=== PATIENT | female | born 1945 | race Caucasian/White ===

== ENCOUNTER 2016-10-04 00:48 | Inpatient (IN) | payer OTHER, MEDICARE ==
[2016-10-04] VITALS (8 sets, daily range): BP systolic 126–135; BP diastolic 57–78; PULSE 72–96; RESP 16–20; TEMP 98.3–102.4; O2SAT 95–99
[~2016-10-04 00:48] MED LIST: ALBU8I INH; BUPR150T3 PO; DOCU1CAP39 PO; FERR324T4 PO; GABA300C3 PO; GLIM2TAB PO; HYDR-2768 PO; MAGN400 PO; METO10 PO; PROT40TA PO; TAMO20TA4 PO; Z.0.WALKERFRONT; ZOCO80TA PO
[2016-10-04] MEDS ORDERED: SODIUM CHLOR 0.9% 1000 ML INJ 1,000 ML IV ONE (00:57)
[2016-10-04] MEDS ORDERED: CEFEPIME INJ 2,000 MG in SODIUM CHLORIDE 0.9% INJ 100 ML IV STA (00:57)
[2016-10-04] MEDS ORDERED: ACETAMINOPHEN 325 MG TAB PO ONE (01:00)
--- NOTE | 2016-10-04 01:23 | PD ---
HPI Chief Complaint: Fever Time Seen by Provider: 00:57 Travel History International Travel<30 days: No Contact w/Intl Traveler<30days: No Traveled to known affect area: No History of Present Illness HPI Patient is a 71-year-old female brought in by EMS due to altered mental status. Per EMS, she lives alone, but her daughter has a neighbor check on her. The daughter told the neighbor that she is concerned her mother was not acting right , and the neighbor went to check on her. She was found in her recliner, sitting in her own feces and urine. Patient says she has not been able to get up since 1 PM today. She says she is having issues with her chronic pain in her knees. She is found to be febrile. She denies any chest pain or shortness of breath. Patient was diagnosed with a UTI by her primary care doctor on Saturday, and finished a course of antibiotics today. She denies nausea or vomiting. She denies abdominal pain. PFSH Past Medical History Arthritis: Yes Asthma: Yes ("years ago") Anxiety: Yes (2004- of ) Depression: No Heart Rhythm Problems: No Cancer: Yes Cardiovascular Problems: Yes ("HEART WORKS AT 58%") High Cholesterol: Yes Chemotherapy: Yes (R/T BREAST CANCER 2007) Chest Pain: No Congestive Heart Failure: No COPD: No Cerebrovascular Accident: No Diabetes: Yes Patient Takes Glucophage: Yes Diminished Hearing: Yes Endocrine: Yes Gastrointestinal Disorders: Yes (ulcer,hiatal hernia) GERD: Yes Genitourinary: No Headaches: No Hiatal Hernia: Yes Hypertension: Yes Immune Disorder: No Implanted Vascular Access Dvce: Yes Musculoskeletal: Yes Neurologic: Yes Psychiatric: No Reproductive: No Respiratory: Yes Immunizations Current: Yes Migraines: No Seizures: No Thyroid Disease: No Ulcer: Yes Past Surgical History Abdominal Surgery: Yes (CHOLECYSTECTOMY) Body Medical Devices: LEFT SC INFUSAPORT NOT WORKING PER PATIENT Genitourinary Surgery: Yes (TUMOR REMOVE RT GROIN) Gynecologic Surgery: Yes (TUBAL LIGATION 1973) Mastectomy: Yes (right) Thoracic Surgery: Yes (RT. BREAST MASTECTOMY DUE TO CANCER) Other Surgery: Yes (MASTOID SURGERY) Social History Alcohol Use: No Tobacco Use: No Substance Use: No Allergies-Medications (Allergen,Severity, Reaction): Coded Allergies: Codeine (Verified Allergy, Severe, Swelling, 10/04/16) Penicillin (Verified Allergy, Intermediate, Rash, 10/04/16) Sulfa (Verified Allergy, Intermediate, Rash, 10/04/16) Reported Meds & Prescriptions Reported Meds & Active Scripts Active Review of Systems Except as stated in HPI: all other systems reviewed are Neg General / Constitutional: Positive: Fever HENT: No: Headaches, Lightheadedness Cardiovascular: No: Chest Pain or Discomfort Respiratory: No: Shortness of Breath Gastrointestinal: No: Nausea, Vomiting, Abdominal Pain Genitourinary: No: Decreased Urinary Output Musculoskeletal: Positive: Pain, No: Edema Skin: No Change in Pigmentation Neurologic: Positive: Weakness, Change in Mentation Physical Exam Narrative GENERAL: Slightly lethargic, but awake. She is alert and oriented. Appears in no acute distress. SKIN: Focused skin assessment warm/dry. Hot to the touch. HEAD: Atraumatic. Normocephalic. EYES: Pupils equal and round. No scleral icterus. ENT: Mucous membranes pink and moist. NECK: Trachea midline. No JVD. CARDIOVASCULAR: Regular rate and rhythm. No murmur appreciated. RESPIRATORY: No accessory muscle use. Clear to auscultation. Breath sounds equal bilaterally. GASTROINTESTINAL: Abdomen soft, non-tender, nondistended. MUSCULOSKELETAL: No obvious deformities. No clubbing. No cyanosis. No edema. Pain with movement of both knees. NEUROLOGICAL: Awake and alert. No obvious cranial nerve deficits. Motor grossly within normal limits. Normal speech. PSYCHIATRIC: Appropriate mood and affect; insight and judgment normal. Data Data Last Documented VS Vital Signs Date Time Temp Pulse Resp B/P Pulse Ox O2 Delivery O2 Flow Rate FiO2 10/04/16 02:36 99.0 80 18 135/63 97 Nasal Cannula 2 Orders Complete Blood Count With Diff (10/04/16 00:57) Comprehensive Metabolic Panel (10/04/16 00:57) Prothrombin Time / Inr (Pt) (10/04/16 00:57) Act Partial Throm Time (Ptt) (10/04/16 00:57) Lactic Acid Sepsis Protocol (10/04/16 00:57) Troponin I (10/04/16 00:57) Urinalysis - C+S If Indicated (10/04/16 00:57) Ua Includes Microscopic (10/04/16 00:57) Blood Culture (10/04/16 00:57) Chest, Single Ap (10/04/16 00:57) Blood Glucose (10/04/16 00:57) Ecg Monitoring (10/04/16 00:57) Iv Access Insert/Monitor (10/04/16 00:57) Cath For Specimen (10/04/16 00:57) Oximetry (10/04/16 00:57) Oxygen Administration (10/04/16 00:57) Acetaminophen (Tylenol) (10/04/16 01:00) Cefepime Inj (Maxipime Inj) (10/04/16 00:57) Sodium Chlor 0.9% 1000 Ml Inj (Ns 1000 M (10/04/16 00:57) Ct Brain W/O Iv Contrast(Rout) (10/04/16 ) Admit To Inpatient (10/04/16 ) Vital Signs (Adult) Q4H (10/04/16 02:53) Activity Oob With Assistance (10/04/16 02:53) Leak Detection Engineer / Telemetry .CONTINUOUS (10/04/16 02:53) Diet Heart Healthy (10/04/16 Breakfast) Admit Order (Ed Use Only) (10/04/16 ) Sodium Chloride 0.9% Flush (Ns Flush) (10/04/16 03:00) Sodium Chloride 0.9% Flush (Ns Flush) (10/04/16 09:00) Basic Metabolic Panel (Bmp) (10/05/16 06:00) Complete Blood Count With Diff (10/05/16 06:00) Pt Request For Service (10/04/16 02:53) Case Management Consult (10/04/16 02:53) Naloxone Inj (Narcan Inj) (10/04/16 03:00) Inpatient Certification (10/04/16 ) Labs Laboratory Tests Test 10/04/16 10/04/16 01:20 01:45 White Blood Count 8.1 TH/MM3 Red Blood Count 4.13 MIL/MM3 Hemoglobin 12.5 GM/DL Hematocrit 36.6 % Mean Corpuscular Volume 88.6 FL Mean Corpuscular Hemoglobin 30.3 PG Mean Corpuscular Hemoglobin 34.2 % Concent Red Cell Distribution Width 15.0 % Platelet Count 271 TH/MM3 Mean Platelet Volume 7.9 FL Neutrophils (%) (Auto) 87.8 % Lymphocytes (%) (Auto) 5.1 % Monocytes (%) (Auto) 6.5 % Eosinophils (%) (Auto) 0.2 % Basophils (%) (Auto) 0.4 % Neutrophils # (Auto) 7.1 TH/MM3 Lymphocytes # (Auto) 0.4 TH/MM3 Monocytes # (Auto) 0.5 TH/MM3 Eosinophils # (Auto) 0.0 TH/MM3 Basophils # (Auto) 0.0 TH/MM3 CBC Comment DIFF FINAL Differential Comment Prothrombin Time 10.6 SEC Prothromb Time International 1.0 RATIO Ratio Activated Partial 26.0 SEC Thromboplast Time Sodium Level 134 MEQ/L Potassium Level 4.4 MEQ/L Chloride Level 96 MEQ/L Carbon Dioxide Level 27.2 MEQ/L Anion Gap 11 MEQ/L Blood Urea Nitrogen 13 MG/DL Creatinine 1.27 MG/DL Estimat Glomerular Filtration 41 ML/MIN Rate Random Glucose 154 MG/DL Lactic Acid Level 1.5 mmol/L Calcium Level 9.3 MG/DL Total Bilirubin 0.6 MG/DL Aspartate Amino Transf 45 U/L (AST/SGOT) Alanine Aminotransferase 35 U/L (ALT/SGPT) Alkaline Phosphatase 101 U/L Troponin I LESS THAN 0.02 NG/ML Total Protein 8.8 GM/DL Albumin 3.5 GM/DL Urine Color YELLOW Urine Turbidity CLEAR Urine pH 5.5 Urine Specific [place] 1.029 Urine Protein TRACE mg/dL Urine Glucose (UA) 1000 mg/dL Urine Ketones 40 mg/dL Urine Occult Blood NEG Urine Nitrite NEG Urine Bilirubin NEG Urine Urobilinogen LESS THAN 2.0 MG/DL Urine Leukocyte Esterase NEG Urine RBC LESS THAN 1 /hpf Urine WBC LESS THAN 1 /hpf Urine Squamous Epithelial <1 /hpf Cells Urine Renal Epithelial Cells 1 /hpf Urine Mucus FEW /lpf Microscopic Urinalysis Comment CATH-CULT NOT IND MDM Medical Decision Making Medical Screen Exam Complete: Yes Emergency Medical Condition: Yes Medical Record Reviewed: Yes Interpretation(s) ECG shows sinus rhythm at 95, no ST elevation or depression, LVH Differential Diagnosis Sepsis versus urosepsis versus pneumonia versus electrolyte abnormality versus dehydration Narrative Course Patient is a 71 year old female who comes in due to AMS with a fever. She was diagnosed with a UTI on Saturday, but became worse today despite taking the antibiotics. Exam shows patient is warm to the touch. IV established, labs sent. Patient connected to the employee placement specialist. Given IVF, Cefepime, Tylenol. Labs show an elevated neutrophil count, and some dehydration. Urinalysis is negative, but this is likely due to the antibiotic use. Admitted for management of sepsis. Diagnosis Primary Impression: Sepsis Qualified Code: A41.9 - Sepsis, due to unspecified organism Additional Impressions: Fever Qualified Code: R50.9 - Fever, unspecified fever cause Altered mental status Qualified Code: R41.0 - Disorientation Admitting Information Admitting Physician Requests: Admit Condition: Stable Catarina Flores MD Oct 04, 2016 01:23
[2016-10-04 01:42] LABS: AUTOMATED NEUTROPHIL # 7.1 TH/MM3 (1.8-7.7); BASOPHIL % 0.4 % (0.0-2.0); EOSINOPHIL % 0.2 % (0.0-4.0); HEMATOCRIT 36.6 % (35.0-46.0); HEMO FLAGS DIFF FINAL; LYMPH % 5.1 % (9.0-44.0); LYMPHOCYTE # 0.4 TH/MM3 (1.0-4.8); MEAN CELL VOLUME 88.6 FL (80.0-100.0); MEAN CORPUSCULAR HEMOGLOBIN 30.3 PG (27.0-34.0); MEAN CORPUSCULAR HGB CONC 34.2 % (32.0-36.0); MONO % 6.5 % (0.0-8.0); NEUT % 87.8 % (16.0-70.0); PLATELET COUNT 271 TH/MM3 (150-450); RED BLOOD COUNT 4.13 MIL/MM3 (4.00-5.30); WHITE BLOOD COUNT 8.1 TH/MM3 (4.0-11.0)
--- NOTE | 2016-10-04 01:44 | RADRPT ---
EXAM DATE/TIME: 10/04/2016 01:13 [facility] COMPARISON: CHEST SINGLE AP, April 09, 2015, 0:06. INDICATIONS : Fever starting today MEDICAL HISTORY : None. SURGICAL HISTORY : None. ENCOUNTER: Initial ACUITY: 1 day PAIN SCORE: 0/10 LOCATION: Bilateral chest FINDINGS: Cardiomegaly. Right axillary clips. Clear lungs. Degenerative changes of the spine. CONCLUSION: No acute disease. Glenn Florence MD on October 04, 2016 at 1:43 Board Certified Radiologist. This report was verified electronically.
[2016-10-04 02:02] LABS: BLOOD, URINE NEG (NEG); COMMENT (UR) CATH-CULT NOT IND; CULTURE IF INDICATED CATH CULTURE NOT IND; GLUCOSE,URINE 1000 mg/dL (NEG); KETONE, URINE 40 mg/dL (NEG); MUCUS URINE FEW /lpf (OCC); NITRITE,URINE NEG (NEG); PH, URINE 5.5 (5.0-8.5); RENAL EPITHELIAL CELLS 1 /hpf; SQUAMOUS EPITHELIAL CELL URINE <1 /hpf (0-5); URINE COLOR YELLOW (YELLW/STRAW)
[2016-10-04 02:03] LABS: PROTHROMBIN TIME - PATIENT 10.6 SEC (9.8-11.6)
[2016-10-04 02:14] LABS: ALKALINE PHOSPHATASE 101 U/L (45-117); ALT (GPT) 35 U/L (10-53); TOTAL BILIRUBIN ADULT 0.6 MG/DL (0.2-1.0)
[2016-10-04 02:19] LABS: ANION GAP 11 MEQ/L (5-15); AST (GOT) 45 U/L (15-37); BICARBONATE 27.2 MEQ/L (21.0-32.0); BLOOD UREA NITROGEN 13 MG/DL (7-18); CHLORIDE 96 MEQ/L (98-107); GLOMERULAR FILTRATION RATE 41 ML/MIN (>89); POTASSIUM 4.4 MEQ/L (3.5-5.1); SODIUM (NA) 134 MEQ/L (136-145)
--- NOTE | 2016-10-04 02:49 | RADRPT ---
EXAM DATE/TIME: 10/04/2016 02:43 [facility] COMPARISON: CT BRAIN W/O CONTRAST, March 30, 2015, 16:35. INDICATIONS : Altered mental status. RADIATION DOSE: 53.82 CTDIvol (mGy) MEDICAL HISTORY : Hypertension. Carcinoma, breast. Diabetes. SURGICAL HISTORY : None. ENCOUNTER: Initial ACUITY: 1 day PAIN SCALE: 0/10 LOCATION: cranial TECHNIQUE: Multiple contiguous axial images were obtained of the head. Using automated exposure control and adj ustment of the mA and/or kV according to patient size, radiation dose was kept as low as reasonably a chievable to obtain optimal diagnostic quality images. DICOM format image data is available electro nically for review and comparison. FINDINGS: There are no signs of acute infarct, intracranial hemorrhage or mass. There is minimal patchy periven tricular white matter disease, and a remote left external capsule lacunar infarct and right cerebral peduncle lacunar infarct suspected. There are no fractures. CONCLUSION: No acute disease. Glenn Florence MD on October 04, 2016 at 2:47 Board Certified Radiologist. This report was verified electronically.
[2016-10-04] MEDS ORDERED: NALOXONE HCL 0.4 MG/ML AMP IV PRN (03:00)
[2016-10-04] MEDS ORDERED: SODIUM CHLORIDE 0.9% FLUSH 10 ML FLUSH IV FLUSH PRN (03:00)
--- NOTE | 2016-10-04 05:29 | HHI.HP ---
HPI Service [facility] Primary Care Physician Non-Staff Admission Diagnosis Sepsis Diagnoses: Travel History International Travel<30 Days: No Contact w/Intl Traveler <30 Da: No Traveled to Known Affected Are: No History of Present Illness History from patient, ER physician to medication, and review of medical records. Patient was brought in by EMS after her daughter who lives in [place] thought that she was not sound in right over the phone and called patient's neighbor to check on her. When the neighbor was not able to get into the house , he called 911. According to ER report, EMS had reported to ER physician that patient was found sitting on her recliner soaked in her feces and urine. Patient was being treated with antibiotics as an outpatient for a recent UTI. Patient upon arrival to ER and in communication with both myself and the ER physician, was entirely awake, alert, oriented. Patient is actually quite sharp and remembers the details for her age. Patient also me that she she is a known diabetic who is on glimepiride at home. She stated her PCP has started her on invokana 100 mg recently. She states that she has checked her blood sugars at home and has been lower than normal. She stated at 10:30 AM her blood sugar was 96, and at 3:30 PM it was 111, and at 8 PM blood sugar was 129. She states her blood sugars usually is in the 240s and 266. She reports she remember getting up from her recliner and making dinner at around 4 PM. She reports she also was sitting on that recliner after this 4 PM and was not really able to get up. She stated she checked her blood sugars at around 8 PM. Her daughter must have called her after this she stated. She denies any falls. She states that one her neighbor was checking on her, she was aware of it but she just was not able to get up from her recliner to open the door. She states the reason for this was because she has bilateral knee pains. She states she usually suffers from pains in her knees because of her osteoarthritis. However in the Past couple of days, her knee pains have been getting worse. She thinks that for past 2 days or so, she was not able to walk well. She states she usually uses a walker to walk at home. When she goes outside of home, she would use a scooter. Patient denies any fevers at home or at the time of her visit to her doctor's office. She was found to have UTI and was started on antibiotics. She does not remember the name of the antibiotics but she thinks that it begins with N. Possibly nitrofurantoin. She denies any urinary burning or pain on urination. She reports of diarrhea for the past 3 days after the start of her antibiotics. However states it only is once a day diarrhea. Is not foul-smelling. She reports she is short of breath for a long time, almost a year now. She has history of COPD. Not on home oxygen. Uses inhalers. Review of Systems Except as stated in HPI: all other systems reviewed are Neg Past Family Social History Past Medical History htn dm no cardiac hx copd no liver or kidney problems no blood clots/ stroke/ thyroid problems breast cancer right - 2007 chemo 2008 Past Surgical History right rotator cuff sx cholecystectomy appendectomy left carpel tunnel sx right carpel tunnel sx tumor removed 2012 from groin right knee cartilage sx left knee cartilage sx tumore removed from left leg Allergies: Coded Allergies: Codeine (Verified Allergy, Severe, Swelling, 10/04/16) Penicillin (Verified Allergy, Intermediate, Rash, 10/04/16) Sulfa (Verified Allergy, Intermediate, Rash, 10/04/16) Family History Denies any family history of any medical issues that. Social History used to smoke, quit 12 yrs ago no drugs, no etoh live by herself, no longer driving uses a walker at home, and uses a scooter when she goes out Physical Exam Vital Signs Vital Signs Date Time Temp Pulse Resp B/P Pulse Ox O2 Delivery O2 Flow Rate FiO2 10/04/16 02:36 99.0 80 18 135/63 97 Nasal Cannula 2 10/04/16 01:02 20 96 Nasal Cannula 2 10/04/16 01:01 96 Nasal Cannula 2 10/04/16 00:59 102.4 10/04/16 00:55 102.4 96 20 135/63 95 Room Air 10/04/16 00:54 Room Air Physical Exam GENERAL: This is a well-nourished, well-developed patient, in no apparent distress. SKIN: No rashes, ecchymoses or lesions. Cool and dry. HEAD: Atraumatic. Normocephalic. No temporal or scalp tenderness. EYES: No scleral icterus. No injection or drainage. ENT: Nose without bleeding, purulent drainage or septal hematoma.Airway patent. NECK: Trachea midline. No JVD Supple, nontender, no meningeal signs. CARDIOVASCULAR: Regular rate and rhythm without murmurs, gallops, or rubs. RESPIRATORY: Clear to auscultation. Breath sounds equal bilaterally. No wheezes , rales, or rhonchi. GASTROINTESTINAL: Abdomen soft, non-tender, nondistended. No guarding. MUSCULOSKELETAL: Extremities without clubbing, cyanosis, or edema. No calf tenderness. NEUROLOGICAL: Awake and alert. Motor and sensory grossly within normal limits. Normal speech Laboratory Laboratory Tests Test 10/04/16 10/04/16 01:20 01:45 White Blood Count 8.1 Red Blood Count 4.13 Hemoglobin 12.5 Hematocrit 36.6 Mean Corpuscular Volume 88.6 Mean Corpuscular Hemoglobin 30.3 Mean Corpuscular Hemoglobin 34.2 Concent Red Cell Distribution Width 15.0 Platelet Count 271 Mean Platelet Volume 7.9 Neutrophils (%) (Auto) 87.8 Lymphocytes (%) (Auto) 5.1 Monocytes (%) (Auto) 6.5 Eosinophils (%) (Auto) 0.2 Basophils (%) (Auto) 0.4 Neutrophils # (Auto) 7.1 Lymphocytes # (Auto) 0.4 Monocytes # (Auto) 0.5 Eosinophils # (Auto) 0.0 Basophils # (Auto) 0.0 CBC Comment DIFF FINAL Differential Comment Prothrombin Time 10.6 Prothromb Time International 1.0 Ratio Activated Partial 26.0 Thromboplast Time Sodium Level 134 Potassium Level 4.4 Chloride Level 96 Carbon Dioxide Level 27.2 Anion Gap 11 Blood Urea Nitrogen 13 Creatinine 1.27 Estimat Glomerular Filtration 41 Rate Random Glucose 154 Lactic Acid Level 1.5 Calcium Level 9.3 Total Bilirubin 0.6 Aspartate Amino Transf 45 (AST/SGOT) Alanine Aminotransferase 35 (ALT/SGPT) Alkaline Phosphatase 101 Troponin I LESS THAN 0.02 Total Protein 8.8 Albumin 3.5 Urine Color YELLOW Urine Turbidity CLEAR Urine pH 5.5 Urine Specific [place] 1.029 Urine Protein TRACE Urine Glucose (UA) 1000 Urine Ketones 40 Urine Occult Blood NEG Urine Nitrite NEG Urine Bilirubin NEG Urine Urobilinogen LESS THAN 2.0 Urine Leukocyte Esterase NEG Urine RBC LESS THAN 1 Urine WBC LESS THAN 1 Urine Squamous Epithelial <1 Cells Urine Renal Epithelial Cells 1 Urine Mucus FEW Microscopic Urinalysis Comment CATH-CULT NOT IND Date/Time Procedure Status Source Growth 10/04/16 01:25 Aerobic Blood Culture Received Blood Peripheral Pending 10/04/16 01:25 Anaerobic Blood Culture Received Blood Peripheral Pending Result Diagram: 10/04/16 0120 10/04/16 0120 Imaging Last 48 hours Impressions Chest X-Ray 10/04/16 0057 Signed Impressions: Service Date/Time: , October 04, 2016 01:13 - CONCLUSION: No acute disease. Glenn Florence MD Head CT 10/04/16 0000 Signed Impressions: Service Date/Time: , October 04, 2016 02:43 - CONCLUSION: No acute disease. Glenn Florence MD Assessment and Plan Assessment and Plan Impression: [facility] this is related to relative hypoglycemia, UTI. Bilateral knee painacute on chronic. UTIwith partially treated outpatient therapy Fever of 102.4 in ER Acute kidney injury- likely from dehydration htn dm no cardiac hx copd no liver or kidney problems no blood clots/ stroke/ thyroid problems breast cancer right - 2006 chemo 2007 Plan: Patient has no photophobia/neck rigidity/mental status examination. Likely her initial presentation is more related to hypoglycemia/UTI. Head CT is negative for any acute pathology. We'll monitor her fingersticks and cover with sliding scale coverage. Hold invokana Hold oral hypoglycemics. Orders have been written to obtain the results of patient's urine culture and sensitivity from PCP office. For now, would continue cefepime 2 g IV every 12 hours. Monitor for fever trends. We'll follow blood culture results. As to her bilateral knee pain, we would obtain physical therapy consult. Obtain x-ray to rule out fractures. However more than likely this is related to her osteoarthritis. Obtain med rec. start on small iv hydration with NS at 84cc/hr - will dc at 3:00p.m. DVT prophylaxiswith heparin. GI prophylaxis on pantoprazole. Discussed Condition With patient, ER MD, nursing staff Physician Certification 2 Midnight Certification Type: Admission for Inpatient Services Order for Inpatient Services The services are ordered in accordance with Medicare regulations or non- Medicare payer requirements, as applicable. In the case of services not specified as inpatient-only, they are appropriately provided as inpatient services in accordance with the 2-midnight benchmark. Estimated LOS (days): 2 days is the estimated time the patient will need to remain in the hospital, assuming treatment plan goals are met and no additional complications. Post-Hospital Plan: Home Ron Drew MD Oct 04, 2016 05:29
[2016-10-04] MEDS ORDERED: GLUCAGON 1 MG/ML VIAL OTHER PRN (07:30)
[2016-10-04] MEDS ORDERED: DEXTROSE 50% IN WATER 50 ML VIAL(D50) IV PRN (07:30)
[2016-10-04] MEDS ORDERED: SODIUM CHLOR 0.9% 1000 ML INJ 1,000 ML IV SCH (07:45)
--- NOTE | 2016-10-04 09:04 | RADRPT ---
EXAM DATE/TIME: 10/04/2016 08:04 [facility] COMPARISON: No previous studies available for comparison. INDICATIONS : Patient unable to put weight on either knee, with no trauma. MEDICAL HISTORY : Diabetes mellitus type II. SURGICAL HISTORY : Pt states that she had surgery bilateral knees in the ENCOUNTER: Initial ACUITY: 1 month PAIN SCORE: 10/10 LOCATION: Left knee FINDINGS: Severe hypertrophic arthritic changes are present with near complete joint space loss throughout an e normous osteophytes present in a tricompartmental distribution. There is no evidence of joint effusio n or fracture. No destructive changes are identified. CONCLUSION: Severe arthritic changes Hernando Calvillo MD on October 04, 2016 at 9:02 Board Certified Radiologist. This report was verified electronically.
--- NOTE | 2016-10-04 09:31 | RADRPT ---
EXAM DATE/TIME: 10/04/2016 08:05 [facility] COMPARISON: No previous studies available for comparison. INDICATIONS : Patient unable to stand and put pressure on either knee. MEDICAL HISTORY : Diabetes mellitus type II. SURGICAL HISTORY : pt states surgery in bilat knees ENCOUNTER: Initial ACUITY: 1 month PAIN SCORE: 10/10 LOCATION: Right knee FINDINGS: Four view examination of the right knee demonstrates mass arthropathy with joint space narrowing, sub chondral sclerosis and marginal spurring typical of osteoarthritis. Patella ultrasound with superior subluxation the patella is noted. There is no evidence of acute fracture or joint effusion. CONCLUSION: Advanced osteoarthritis of the right knee with patella conrado no evidence of acute fracture or joint ef fusion. Niels Dallas MD on October 04, 2016 at 8:50 Board Certified Radiologist. This report was verified electronically.
--- NOTE | 2016-10-04 09:35 | HHI.PR ---
Subjective Remarks in no acute distress. denies pain. says that had diarrhea for the past three days. Tmax 102.4. Objective Vitals Vital Signs Date Time Temp Pulse Resp B/P Pulse Ox O2 Delivery O2 Flow Rate FiO2 10/04/16 02:36 99.0 80 18 135/63 97 Nasal Cannula 2 10/04/16 01:02 20 96 Nasal Cannula 2 10/04/16 01:01 96 Nasal Cannula 2 10/04/16 00:59 102.4 10/04/16 00:55 102.4 96 20 135/63 95 Room Air 10/04/16 00:54 Room Air Result Diagram: 10/04/16 0120 10/04/16 0120 Imaging Last Impressions Chest X-Ray 10/04/16 0057 Signed Impressions: Service Date/Time: September 01:13 - CONCLUSION: No acute disease. Glenn Florence MD Knee X-Ray 10/04/16 0000 Signed Impressions: Service Date/Time: September 08:04 - CONCLUSION: Severe arthritic changes Hernando Calvillo MD Head CT 10/04/16 0000 Signed Impressions: Service Date/Time: September 02:43 - CONCLUSION: No acute disease. Glenn Florence MD Objective Remarks GENERAL: This is a well-nourished, well-developed patient, in no apparent distress. CARDIOVASCULAR: Regular rate and regular rhythm without murmurs, gallops, or rubs. RESPIRATORY: Clear to auscultation. Breath sounds equal bilaterally. No wheezes , rales, or rhonchi. GASTROINTESTINAL: Abdomen soft, non-tender, nondistended. Normal, active bowel sounds MUSCULOSKELETAL: Extremities without clubbing, cyanosis, or edema. NEURO: Alert & Oriented x4 to person, place, time, situation. Moves all ext x4 Medications and IVs Current Medications Acetaminophen 650 mg 650 mg ONCE ONCE PO Last administered on 10/04/16 01:50 ; Start 10/04/16 at 01:00; Stop 10/04/16 at 01:01; Status DC Cefepime HCl 2000 mg/Sodium Chloride 100 ml @ 200 mls/hr ONCE STAT IV Last administered on 10/04/16 01:50; Start 10/04/16 at 00:57; Stop 10/04/16 at 01:26 ; Status DC Sodium Chloride (NS 1000 ml Inj) 1,000 ml @ 1,000 mls/hr Q1H ONCE IV Last administered on 10/04/16 01:50; Start 10/04/16 at 00:57; Stop 10/04/16 at 01:56 ; Status DC Sodium Chloride (NS Flush) 2 ml UNSCH PRN IV FLUSH FLUSH AFTER USING IV ACCESS ; Start 10/04/16 at 03:00 Sodium Chloride (NS Flush) 2 ml BID IV FLUSH ; Start 10/04/16 at 09:00 Naloxone HCl 0.4 mg 0.4 mg UNSCH PRN IV SEE LABEL COMMENTS; Start 10/04/16 at 03:00 Cefepime HCl/ Sodium Chloride (Maxipime Inj/NS Inj) 100 ml @ 200 mls/hr Q12H IV ; Start 10/04/16 at 15:00 Dextrose (D50w (Vial) Inj) 50 ml UNSCH PRN IV HYPOGLYCEMIA-SEE COMMENTS; Start 10/04/16 at 07:30 Glucagon (Glucagon Inj) 1 mg UNSCH PRN OTHER HYPOGLYCEMIA-SEE COMMENTS; Start 10/04/16 at 07:30 Insulin Aspart (NovoLOG SUPPLEMENTAL SCALE) 1 ACHS SLIDING SCALE SQ ; Start 12/11 at 11:00 Heparin Sodium (Porcine) (Heparin Inj) 5,000 units Q8HR SQ ; Start 10/04/16 at 14:00 Pantoprazole Sodium 40 mg 40 mg DAILY PO ; Start 10/04/16 at 09:00 Sodium Chloride (NS 1000 ml Inj) 1,000 ml @ 84 mls/hr [id number] IV Last administered on 10/04/16 09:03; Start 10/04/16 at 07:45; Stop 10/04/16 at 15:00 A/P Assessment and Plan A/P acute encephalopathy- likely due to sepsis; suspect C-diff colitis in light of diarrhea,fever and recent antibiotic therapy for UTI- seems to be improving. continue antibiotics-monitor temps- follow the cultures- send the stool for c-diff. Bilateral knee painacute on chronic- XR with severe arthritis- continue with pain control- PT consulted. UTIrecently treated- send the urine for culture Acute kidney injury- likely from dehydration; continue IV fluid- BMP in am. diabetes mellitus; accu-check with SSI hypertension; BP controlled- will verify the home meds DVT prophylaxis with subq Heparin Chely Valles MD Oct 04, 2016 09:35 Chely Valles MD Oct 04, 2016 09:35
[2016-10-04] MEDS: SODIUM CHLORIDE 0.9% FLUSH 10 ML FLUSH IV FLUSH SCH ×2 (09:44→22:41)
[2016-10-04] MEDS: PANTOPRAZOLE SOD 40 MG DELAYED RELEASE TAB PO SCH (09:44)
[2016-10-04] MEDS: INSULIN ASPART SUPPLEMENTAL SCALE SQ SCH ×3 (11:37→21:00)
--- NOTE | 2016-10-04 11:50 | EKG ---
Date Performed: 10/04/2016 Time Performed: 00:55:11 PTAGE: 71 years EKG: Normal Sinus rhythm Left axis deviation Possible left ventricular hypertrophy Low limb lead voltage criteria Poor R-wave progression, cannot exclude old anterior infarct Nonspecific ST abnormality more prominent from the prior tracing PREVIOUS TRACING : 04/09/2015 01.06 DOCTOR: Osvaldo Cannon Interpretating Date/Time 10/04/2016 11:49:08
[2016-10-04] MEDS: HEPARIN SODIUM - SQ 10,000 UNITS/ML VIAL SQ SCH ×2 (12:50→22:40)
[2016-10-04] MEDS ORDERED: ALBUAER3 INH (14:02)
[2016-10-04] MEDS ORDERED: BUPR150T12 PO (14:06)
[2016-10-04] MEDS ORDERED: METO10TA PO (14:08)
[2016-10-04] MEDS ORDERED: VITA1000 PO (14:11)
[2016-10-04] MEDS ORDERED: MULT-116 PO (14:12)
[2016-10-04] MEDS ORDERED: RANI1TAB7 PO (14:57)
[2016-10-04] MEDS ORDERED: MAGN400T2 PO (14:58)
[2016-10-04] MEDS ORDERED: MOBI7.5T PO (14:58)
[2016-10-04] MEDS ORDERED: GLIM2TAB PO (14:59)
[2016-10-04] MEDS ORDERED: GABA400C5 PO (15:03)
[2016-10-04] MEDS ORDERED: HYDR25TA5 PO (15:03)
[2016-10-04] MEDS ORDERED: PANT40TA3 PO (15:03)
[2016-10-04] MEDS ORDERED: SIMV80TA PO (15:03)
[2016-10-04] MEDS ORDERED: FERR325T8 PO (15:03)
[2016-10-04] MEDS ORDERED: TAMO20TA6 PO (15:04)
[2016-10-04] MEDS ORDERED: CANA100T PO (15:12)
[2016-10-04] MEDS ORDERED: ZOFR8TAB PO (15:12)
[2016-10-04] MEDS: CEFEPIME INJ 2,000 MG in SODIUM CHLORIDE 0.9% INJ 100 ML IV SCH (15:24)
[2016-10-04] MEDS: ACETAMINOPHEN 325 MG TAB PO PRN (22:41)
[2016-10-05] VITALS (7 sets, daily range): BP systolic 125–150; BP diastolic 60–70; PULSE 65–71; RESP 17–22; TEMP 98.1–98.9; O2SAT 95–100
[2016-10-05] MEDS: CEFEPIME INJ 2,000 MG in SODIUM CHLORIDE 0.9% INJ 100 ML IV SCH ×2 (03:16→13:46)
[2016-10-05] MEDS: HEPARIN SODIUM - SQ 10,000 UNITS/ML VIAL SQ SCH ×3 (06:00→22:50)
[2016-10-05] MEDS: INSULIN ASPART SUPPLEMENTAL SCALE SQ SCH ×4 (07:00→21:00)
[2016-10-05] MEDS: SODIUM CHLORIDE 0.9% FLUSH 10 ML FLUSH IV FLUSH SCH ×2 (08:42→23:04)
[2016-10-05] MEDS: PANTOPRAZOLE SOD 40 MG DELAYED RELEASE TAB PO SCH (08:46)
--- NOTE | 2016-10-05 09:53 | HHI.PR ---
Subjective Remarks resting comfortably with no distress. overall doing fine. no fever. no new complaints. d/w the RN. Objective Vitals Vital Signs Date Time Temp Pulse Resp B/P Pulse Ox O2 Delivery O2 Flow Rate FiO2 10/05/16 08:00 98.9 71 18 148/66 95 10/05/16 04:30 98.1 69 17 138/63 98 10/05/16 04:00 70 10/05/16 00:30 98.6 71 17 125/60 98 10/04/16 23:54 18 10/04/16 16:00 98.6 72 17 126/60 98 10/04/16 14:00 98.3 79 17 130/57 97 10/04/16 11:49 78 16 127/78 99 I/O 10/04/16 10/04/16 10/04/16 10/05/16 10/05/16 10/05/16 06:59 14:59 22:59 06:59 14:59 22:59 Intake Total 20 ml 610 ml Balance 20 ml 610 ml Intake IV Total 20 ml 610 ml Result Diagram: 10/04/16 0120 10/04/16 0120 Imaging Last Impressions Chest X-Ray 10/04/16 0057 Signed Impressions: Service Date/Time: September 01:13 - CONCLUSION: No acute disease. Glenn Florence MD Knee X-Ray 10/04/16 0000 Signed Impressions: Service Date/Time: September 08:05 - CONCLUSION: Advanced osteoarthritis of the right knee with patella conrado no evidence of acute fracture or joint effusion. Niels Dallas MD Head CT 10/04/16 0000 Signed Impressions: Service Date/Time: September 02:43 - CONCLUSION: No acute disease. Glenn Florence MD Objective Remarks GENERAL: This is a well-nourished, well-developed patient, in no apparent distress. CARDIOVASCULAR: Regular rate and regular rhythm without murmurs, gallops, or rubs. RESPIRATORY: Clear to auscultation. Breath sounds equal bilaterally. No wheezes , rales, or rhonchi. GASTROINTESTINAL: Abdomen soft, non-tender, nondistended. Normal, active bowel sounds MUSCULOSKELETAL: Extremities without clubbing, cyanosis, or edema. NEURO: Alert & Oriented x4 to person, place, time, situation. Moves all ext x4 Procedures none Medications and IVs Current Medications Acetaminophen 650 mg 650 mg ONCE ONCE PO Last administered on 10/04/16 01:50 ; Start 10/04/16 at 01:00; Stop 10/04/16 at 01:01; Status DC Cefepime HCl 2000 mg/Sodium Chloride 100 ml @ 200 mls/hr ONCE STAT IV Last administered on 10/04/16 01:50; Start 10/04/16 at 00:57; Stop 10/04/16 at 01:26 ; Status DC Sodium Chloride (NS 1000 ml Inj) 1,000 ml @ 1,000 mls/hr Q1H ONCE IV Last administered on 10/04/16 01:50; Start 10/04/16 at 00:57; Stop 10/04/16 at 01:56 ; Status DC Sodium Chloride (NS Flush) 2 ml UNSCH PRN IV FLUSH FLUSH AFTER USING IV ACCESS ; Start 10/04/16 at 03:00 Sodium Chloride (NS Flush) 2 ml BID IV FLUSH Last administered on 10/04/16 22: 41; Start 10/04/16 at 09:00 Naloxone HCl 0.4 mg 0.4 mg UNSCH PRN IV SEE LABEL COMMENTS; Start 10/04/16 at 03:00 Cefepime HCl/ Sodium Chloride (Maxipime Inj/NS Inj) 100 ml @ 200 mls/hr Q12H IV Last administered on 10/05/16 03:16; Start 10/04/16 at 15:00 Dextrose (D50w (Vial) Inj) 50 ml UNSCH PRN IV HYPOGLYCEMIA-SEE COMMENTS; Start 10/04/16 at 07:30 Glucagon (Glucagon Inj) 1 mg UNSCH PRN OTHER HYPOGLYCEMIA-SEE COMMENTS; Start 10/04/16 at 07:30 Insulin Aspart (NovoLOG SUPPLEMENTAL SCALE) 1 ACHS SLIDING SCALE SQ Last administered on 10/04/16 11:37; Start 10/04/16 at 11:00 Heparin Sodium (Porcine) (Heparin Inj) 5,000 units Q8HR SQ Last administered on 10/05/16 06:00; Start 10/04/16 at 14:00 Pantoprazole Sodium 40 mg 40 mg DAILY PO Last administered on 10/05/16 08:46; Start 10/04/16 at 09:00 Sodium Chloride (NS 1000 ml Inj) 1,000 ml @ 84 mls/hr [id number] IV Last administered on 10/04/16 09:03; Start 10/04/16 at 07:45; Stop 10/04/16 at 15:00 ; Status DC Acetaminophen (Tylenol) 650 mg Q4H PRN PO FEVER/PAIN Last administered on 22:41; Start 10/04/16 at 09:45 A/P Assessment and Plan A/P acute encephalopathy- likely due to sepsis; suspect UTI- seems to be improving. continue antibiotics-monitor temps- follow the cultures- Bilateral knee painacute on chronic- XR with severe arthritis- continue with pain control- PT consulted. UTIrecently treated- UC pending. Acute kidney injury- likely from dehydration; continue IV fluid- BMP in am. diabetes mellitus; accu-check with SSI hypertension; BP controlled- DVT prophylaxis with subq Heparin Discharge Planning possible discharge tomorrow if stable and afebrile- pending the cultures. Chely Valles MD Oct 05, 2016 09:52
[2016-10-05] MEDS: PRAVASTATIN SOD 80 MG TAB PO SCH (10:22)
[2016-10-05] MEDS: TAMOXIFEN CITRATE 10 MG TAB PO SCH (10:22)
[2016-10-05 10:24] LABS: AUTOMATED NEUTROPHIL # 3.4 TH/MM3 (1.8-7.7); BASOPHIL % 0.7 % (0.0-2.0); EOSINOPHIL # 0.1 TH/MM3 (0-0.4); HEMATOCRIT 33.9 % (35.0-46.0); HEMO FLAGS DIFF FINAL; LYMPH % 18.2 % (9.0-44.0); LYMPHOCYTE # 0.9 TH/MM3 (1.0-4.8); MEAN CELL VOLUME 91.4 FL (80.0-100.0); MEAN CORPUSCULAR HEMOGLOBIN 29.5 PG (27.0-34.0); MEAN CORPUSCULAR HGB CONC 32.2 % (32.0-36.0); MONO % 10.4 % (0.0-8.0); NEUT % 67.7 % (16.0-70.0); PLATELET COUNT 229 TH/MM3 (150-450); RED BLOOD COUNT 3.71 MIL/MM3 (4.00-5.30); RED CELL DISTRIBUTION WIDTH 14.9 % (11.6-17.2)
[2016-10-05 11:03] LABS: POTASSIUM 3.4 MEQ/L (3.5-5.1)
--- NOTE | 2016-10-05 12:59 | HHI.FF ---
Face to Face Verification Diagnosis: (1) General weakness Physical Therapy Order: Evaluate and Treat I have seen patient Micheline Mason on 10/05/16. My clinical findings support the need for the requested home health care services because: Ltd mobility - disease progression I certify that my clinical findings support that this patient is homebound because: Unsteady gait/balance Chely Valles MD Oct 05, 2016 12:59
[2016-10-05] MEDS ORDERED: POTASSIUM CHLORIDE 10 MEQ CAP PO ONE (14:00)
[2016-10-05] MEDS ORDERED: ONDANSETRON HCL 4 MG/2 ML VIAL IV PUSH ONE (22:00)
[2016-10-05] MEDS: buPROPion HCL 150 MG SUSTAINED RELEASE TAB PO SCH (22:50)
[2016-10-05] MEDS: GABAPENTIN 400 MG CAP PO SCH (23:04)
[2016-10-06] VITALS (7 sets, daily range): BP systolic 114–158; BP diastolic 57–81; PULSE 63–76; RESP 16–27; TEMP 97.9–99; O2SAT 95–100
[2016-10-06] MEDS: CEFEPIME INJ 2,000 MG in SODIUM CHLORIDE 0.9% INJ 100 ML IV SCH (03:29)
[2016-10-06] MEDS ORDERED: PROMETHAZINE HCL 25 MG TAB PO ONE (03:30)
[2016-10-06] MEDS: HEPARIN SODIUM - SQ 10,000 UNITS/ML VIAL SQ SCH ×3 (06:14→21:35)
[2016-10-06] MEDS: INSULIN ASPART SUPPLEMENTAL SCALE SQ SCH ×4 (06:14→21:00)
[2016-10-06] MEDS: buPROPion HCL 150 MG SUSTAINED RELEASE TAB PO SCH ×2 (08:49→21:35)
[2016-10-06] MEDS: SODIUM CHLORIDE 0.9% FLUSH 10 ML FLUSH IV FLUSH SCH ×2 (08:49→21:00)
[2016-10-06] MEDS: PRAVASTATIN SOD 80 MG TAB PO SCH (08:49)
[2016-10-06] MEDS: TAMOXIFEN CITRATE 10 MG TAB PO SCH (08:49)
[2016-10-06] MEDS: PANTOPRAZOLE SOD 40 MG DELAYED RELEASE TAB PO SCH (08:49)
[2016-10-06] MEDS ORDERED: PANTOPRAZOLE SOD 40 MG DELAYED RELEASE TAB PO SCH (09:00)
--- NOTE | 2016-10-06 10:24 | HHI.PR ---
Subjective Remarks in no acute distress. complaining of nausea. had one episode of emesis last night. has some pain to both knees. d/w the RN. Objective Vitals Vital Signs Date Time Temp Pulse Resp B/P Pulse Ox O2 Delivery O2 Flow Rate FiO2 10/06/16 08:00 63 10/06/16 08:00 97.9 65 16 158/68 97 10/06/16 04:00 98.4 70 18 129/63 96 10/06/16 00:00 99.0 73 20 132/62 100 10/05/16 20:00 98.1 68 22 142/66 99 10/05/16 16:00 98.4 65 18 150/70 100 10/05/16 12:00 98.7 69 18 144/66 99 I/O 10/05/16 10/05/16 10/05/16 10/06/16 10/06/16 10/06/16 07:00 15:00 23:00 07:00 15:00 23:00 Intake Total 20 ml 610 ml Balance 20 ml 610 ml Intake IV Total 20 ml 610 ml # Voids 2 # Bowel Movements 1 Result Diagram: 10/05/16 0911 10/05/16 0911 Imaging Last Impressions Chest X-Ray 10/04/16 0057 Signed Impressions: Service Date/Time: September 01:13 - CONCLUSION: No acute disease. Glenn Florence MD Knee X-Ray 10/04/16 0000 Signed Impressions: Service Date/Time: September 08:05 - CONCLUSION: Advanced osteoarthritis of the right knee with patella conrado no evidence of acute fracture or joint effusion. Niels Dallas MD Head CT 10/04/16 0000 Signed Impressions: Service Date/Time: September 02:43 - CONCLUSION: No acute disease. Glenn Florence MD Objective Remarks GENERAL: This is a well-nourished, well-developed patient, in no apparent distress. CARDIOVASCULAR: Regular rate and regular rhythm without murmurs, gallops, or rubs. RESPIRATORY: Clear to auscultation. Breath sounds equal bilaterally. No wheezes , rales, or rhonchi. GASTROINTESTINAL: Abdomen soft, non-tender, nondistended. Normal, active bowel sounds MUSCULOSKELETAL: Extremities without clubbing, cyanosis, or edema. NEURO: Alert & Oriented x4 to person, place, time, situation. Moves all ext x4 Procedures none Medications and IVs Current Medications Acetaminophen 650 mg 650 mg ONCE ONCE PO Last administered on 10/04/16 01:50 ; Start 10/04/16 at 01:00; Stop 10/04/16 at 01:01; Status DC Cefepime HCl 2000 mg/Sodium Chloride 100 ml @ 200 mls/hr ONCE STAT IV Last administered on 10/04/16 01:50; Start 10/04/16 at 00:57; Stop 10/04/16 at 01:26 ; Status DC Sodium Chloride (NS 1000 ml Inj) 1,000 ml @ 1,000 mls/hr Q1H ONCE IV Last administered on 10/04/16 01:50; Start 10/04/16 at 00:57; Stop 10/04/16 at 01:56 ; Status DC Sodium Chloride (NS Flush) 2 ml UNSCH PRN IV FLUSH FLUSH AFTER USING IV ACCESS ; Start 10/04/16 at 03:00 Sodium Chloride (NS Flush) 2 ml BID IV FLUSH Last administered on 10/06/16 08: 49; Start 10/04/16 at 09:00 Naloxone HCl 0.4 mg 0.4 mg UNSCH PRN IV SEE LABEL COMMENTS; Start 10/04/16 at 03:00 Cefepime HCl/ Sodium Chloride (Maxipime Inj/NS Inj) 100 ml @ 200 mls/hr Q12H IV Last administered on 10/06/16 03:29; Start 10/04/16 at 15:00 Dextrose (D50w (Vial) Inj) 50 ml UNSCH PRN IV HYPOGLYCEMIA-SEE COMMENTS; Start 10/04/16 at 07:30 Glucagon (Glucagon Inj) 1 mg UNSCH PRN OTHER HYPOGLYCEMIA-SEE COMMENTS; Start 10/04/16 at 07:30 Insulin Aspart (NovoLOG SUPPLEMENTAL SCALE) 1 ACHS SLIDING SCALE SQ Last administered on 10/04/16 11:37; Start 10/04/16 at 11:00 Heparin Sodium (Porcine) (Heparin Inj) 5,000 units Q8HR SQ Last administered on 10/06/16 06:14; Start 10/04/16 at 14:00 Pantoprazole Sodium 40 mg 40 mg DAILY PO Last administered on 10/06/16 08:49; Start 10/04/16 at 09:00 Sodium Chloride (NS 1000 ml Inj) 1,000 ml @ 84 mls/hr [id number] IV Last administered on 10/04/16 09:03; Start 10/04/16 at 07:45; Stop 10/04/16 at 15:00 ; Status DC Acetaminophen (Tylenol) 650 mg Q4H PRN PO FEVER/PAIN Last administered on 22:41; Start 10/04/16 at 09:45 Albuterol Sulfate (Ventolin Hfa Inh) 2 puff Q6HR PRN INH SHORTNESS OF BREATH; Start 10/05/16 at 10:00 Bupropion HCl (Wellbutrin Sr) 150 mg BID PO Last administered on 10/06/16 08: 49; Start 10/05/16 at 21:00 Gabapentin (Neurontin) 400 mg HS PO Last administered on 10/05/16 23:04; Start 10/05/16 at 21:00 Pantoprazole Sodium (Protonix) 40 mg DAILY PO ; Start 10/06/16 at 09:00; Stop at 09:00; Status DC Tamoxifen Citrate (Nolvadex) 20 mg DAILY PO Last administered on 10/06/16 08: 49; Start 10/05/16 at 10:00 Pravastatin Sodium (Pravachol) 80 mg DAILY PO CM Last administered on 10/06/16 08:49; Start 10/05/16 at 10:00 Potassium Chloride (KCl) 10 meq ONCE ONCE PO Last administered on 10/05/16 13 :46; Start 10/05/16 at 14:00; Stop 10/05/16 at 14:01; Status DC Ondansetron HCl (Zofran Inj) 4 mg ONCE ONCE IV PUSH Last administered on 22:50; Start 10/05/16 at 22:00; Stop 10/05/16 at 22:01; Status DC Promethazine HCl (Phenergan) 12.5 mg ONCE ONCE PO Last administered on 03:29; Start 10/06/16 at 03:30; Stop 10/06/16 at 03:31; Status DC A/P Assessment and Plan A/P acute encephalopathy- likely due to sepsis; suspect UTI- resolved. continue antibiotics-monitor temps- cultures negative. Bilateral knee painacute on chronic- XR with severe arthritis- continue with pain control- PT consulted. nausea/emesis- change the to full liquid and advance as tolerates- antiemetics as needed- will monitor. UTIrecently treated- UC negative- stop antibiotics. Acute kidney injury- likely from dehydration;improved. diabetes mellitus; accu-check with SSI hypertension; BP controlled- DVT prophylaxis with subq Heparin Discharge Planning dc home later this evening or in am- if stable- and with no recurrent nausea/ emesis. Chely Valles MD Oct 06, 2016 10:24
--- NOTE | 2016-10-06 10:26 | HHI.DS ---
Discharge Summary Admission Date Oct 04, 2016 at 03:03 Discharge Date: Oct 06, 2016 Admitting Diagnosis Sepsis (1) Altered mental status ICD Code: R41.82 Diagnosis: Principal Procedures none Brief History - From Admission History from patient, ER physician to medication, and review of medical records. Patient was brought in by EMS after her daughter who lives in [place] thought that she was not sound in right over the phone and called patient's neighbor to check on her. When the neighbor was not able to get into the house , he called 911. According to ER report, EMS had reported to ER physician that patient was found sitting on her recliner soaked in her feces and urine. Patient was being treated with antibiotics as an outpatient for a recent UTI. Patient upon arrival to ER and in communication with both myself and the ER physician, was entirely awake, alert, oriented. Patient is actually quite sharp and remembers the details for her age. Patient also me that she she is a known diabetic who is on glimepiride at home. She stated her PCP has started her on invokana 100 mg recently. She states that she has checked her blood sugars at home and has been lower than normal. She stated at 10:30 AM her blood sugar was 96, and at 3:30 PM it was 111, and at 8 PM blood sugar was 129. She states her blood sugars usually is in the 240s and 266. She reports she remember getting up from her recliner and making dinner at around 4 PM. She reports she also was sitting on that recliner after this 4 PM and was not really able to get up. She stated she checked her blood sugars at around 8 PM. Her daughter must have called her after this she stated. She denies any falls. She states that one her neighbor was checking on her, she was aware of it but she just was not able to get up from her recliner to open the door. She states the reason for this was because she has bilateral knee pains. She states she usually suffers from pains in her knees because of her osteoarthritis. However in the Past couple of days, her knee pains have been getting worse. She thinks that for past 2 days or so, she was not able to walk well. She states she usually uses a walker to walk at home. When she goes outside of home, she would use a scooter. Patient denies any fevers at home or at the time of her visit to her doctor's office. She was found to have UTI and was started on antibiotics. She does not remember the name of the antibiotics but she thinks that it begins with N. Possibly nitrofurantoin. She denies any urinary burning or pain on urination. She reports of diarrhea for the past 3 days after the start of her antibiotics. However states it only is once a day diarrhea. Is not foul-smelling. She reports she is short of breath for a long time, almost a year now. She has history of COPD. Not on home oxygen. Uses inhalers. CBC/BMP: 10/05/16 0911 10/05/16 0911 Significant Findings Laboratory Tests Test 10/04/16 10/04/16 10/05/16 01:20 01:45 09:11 Neutrophils (%) (Auto) 87.8 % (16.0-70.0) Lymphocytes (%) (Auto) 5.1 % (9.0-44.0) Lymphocytes # (Auto) 0.4 TH/MM3 0.9 TH/MM3 (1.0-4.8) (1.0-4.8) Sodium Level 134 MEQ/L (136-145) Chloride Level 96 MEQ/L 109 MEQ/L (98-107) (98-107) Creatinine 1.27 MG/DL (0.50-1.00) Estimat Glomerular Filtration 41 ML/MIN (>89) 79 ML/MIN (>89) Rate Random Glucose 154 MG/DL (74-106) Aspartate Amino Transf 45 U/L (15-37) (AST/SGOT) Troponin I LESS THAN 0.02 NG/ML (0.02-0.05) Total Protein 8.8 GM/DL (6.4-8.2) Urine Glucose (UA) 1000 mg/dL (NEG) Urine Ketones 40 mg/dL (NEG) Urine Mucus FEW /lpf (OCC) Red Blood Count 3.71 MIL/MM3 (4.00-5.30) Hemoglobin 10.9 GM/DL (11.6-15.3) Hematocrit 33.9 % (35.0-46.0) Monocytes (%) (Auto) 10.4 % (0.0-8.0) Potassium Level 3.4 MEQ/L (3.5-5.1) Calcium Level 8.0 MG/DL (8.5-10.1) Imaging Last Impressions Chest X-Ray 10/04/16 0057 Signed Impressions: Service Date/Time: September 01:13 - CONCLUSION: No acute disease. Glenn Florence MD Knee X-Ray 10/04/16 0000 Signed Impressions: Service Date/Time: , October 04, 2016 08:05 - CONCLUSION: Advanced osteoarthritis of the right knee with patella conrado no evidence of acute fracture or joint effusion. Niels Dallas MD Head CT 10/04/16 0000 Signed Impressions: Service Date/Time: , October 04, 2016 02:43 - CONCLUSION: No acute disease. Glenn Florence MD PE at Discharge GENERAL: This is a well-nourished, well-developed patient, in no apparent distress. CARDIOVASCULAR: Regular rate and regular rhythm without murmurs, gallops, or rubs. RESPIRATORY: Clear to auscultation. Breath sounds equal bilaterally. No wheezes , rales, or rhonchi. GASTROINTESTINAL: Abdomen soft, non-tender, nondistended. Normal, active bowel sounds MUSCULOSKELETAL: Extremities without clubbing, cyanosis, or edema. NEURO: Alert & Oriented x4 to person, place, time, situation. Moves all ext x4 Hospital Course acute encephalopathy- likely due to sepsis; suspect UTI- resolved. continue antibiotics-monitor temps- cultures negative. Bilateral knee painacute on chronic- XR with severe arthritis- continue with pain control- PT consulted. nausea; antiemetics as needed. UTIrecently treated- UC negative- stop antibiotics. Acute kidney injury- likely from dehydration;improved. diabetes mellitus; accu-check with SSI hypertension; BP controlled- DVT prophylaxis with subq Heparin Pt Condition on Discharge: Fair Discharge Disposition: Disch w/ Home Health Serv Discharge Time: <= 30 minutes Discharge Instructions DIET: Follow Instructions for: Heart Healthy Diet, Diabetic Diet Activities you can perform: Regular-No Restrictions Follow up Referrals: PCP Follow-up New Medications: Glimepiride (Glimepiride) 1 Mg Tab 1 MG PO DAILY Take with breakfast or first main meal Blood Sugar Management #30 Ref 0 TAB Continued Medications: Albuterol 8.5 GM Inh (Proair Hfa 8.5 GM Inh) 90 Mcg/Act Aer 2 PUFF INH Q4-6H 108 mcg/actuation PRN SHORTNESS OF BREATH #1 Ref 0 INHALER Bupropion ER 12 HR (Smoking Deterrent) (Bupropion Sr 12 HR) 150 Mg Tab 150 MG PO BID Take 1 tablet daily x 3 days then twice daily thereafter. TAB Canagliflozin (Invokana) 100 Mg Tab 100 MG PO DAILY Take before 1st meal of day. Blood Sugar Management #30 Ref 0 TAB Cholecalciferol (Vitamin D-1000) 1,000 Unit Tab 1000 UNITS PO DAILY Nutritional Supplement #1 Ref 0 BOTTLE Ferrous Sulfate (Ferrous Sulfate) 325 Mg (65 Mg Iron) Tablet 325 MG PO DAILY Nutritional Supplement #30 Ref 0 TAB Gabapentin (Gabapentin) 400 Mg Cap 400 CAP PO HS #30 Ref 0 CAP Hydrochlorothiazide (Hydrochlorothiazide) 25 Mg Tab 25 MG PO DAILY #30 Ref 0 TAB Magnesium Oxide (Magnesium Oxide) 400 Mg Tab 400 MG PO DAILY Nutritional Supplement Ref 0 TAB Metoclopramide (Metoclopramide) 10 Mg Tab 10 MG PO QID Ref 0 TAB Multiple Vitamins W/ Minerals ([place]ren Mag Zinc + D3) 1 Tab 1 TAB PO DAILY Nutritional Supplement Ref 0 TAB Ondansetron (Zofran) 8 Mg Tab 8 MG PO TID Nausea/Vomiting Ref 0 TAB Pantoprazole (Pantoprazole) 40 Mg Tab 40 MG PO DAILY Reflux #30 Ref 0 TAB Ranitidine (Ranitidine Maximum Strength) 150 Mg Tab 150 MG PO BID Ref 0 TAB Simvastatin (Simvastatin) 80 Mg Tab 80 MG PO DAILY Cholesterol Management #30 Ref 0 TAB Tamoxifen (Tamoxifen) 20 Mg Tab 20 MG PO DAILY Chemotherapy Management #60 Ref 0 TAB Discontinued Medications: Glimepiride (Glimepiride) 2 Mg Tab 2 MG PO BIDAC Blood Sugar Management #60 Ref 0 TAB Meloxicam (Mobic) 7.5 Mg Tab 7.5 MG PO DAILY Pain Ref 0 TAB Chely Valles MD Oct 06, 2016 10:26
[2016-10-06] MEDS ORDERED: GLIM1TAB PO (10:29)
[2016-10-06] MEDS: ACETAMINOPHEN 325 MG TAB PO PRN (10:47)
[2016-10-06] MEDS: ONDANSETRON HCL 4 MG/2 ML VIAL IV PUSH PRN (12:02)
[2016-10-06] MEDS: GABAPENTIN 400 MG CAP PO SCH (21:35)
[2016-10-07 01:49] VITALS: BP 143/64; PULSE 66; RESP 18; TEMP 98.9; O2SAT 100
[2016-10-07 03:50] VITALS: BP 150/67; PULSE 66; RESP 18; TEMP 98.5; O2SAT 100
[2016-10-07] MEDS: HEPARIN SODIUM - SQ 10,000 UNITS/ML VIAL SQ SCH ×3 (05:27→21:02)
[2016-10-07] MEDS: INSULIN ASPART SUPPLEMENTAL SCALE SQ SCH ×4 (06:34→21:31)
[2016-10-07 08:01] VITALS: BP 142/67; PULSE 71; RESP 20; TEMP 98.3; O2SAT 93
--- NOTE | 2016-10-07 08:59 | HHI.PR ---
Subjective Remarks still on liquid diet with persistent nausea. complaining of acid reflux. afebrile. d/w the RN. Objective Vitals Vital Signs Date Time Temp Pulse Resp B/P Pulse Ox O2 Delivery O2 Flow Rate FiO2 10/07/16 08:01 98.3 71 20 142/67 93 10/07/16 03:50 98.5 66 18 150/67 100 10/07/16 01:49 98.9 66 18 143/64 100 10/06/16 20:39 98.5 66 18 131/81 100 10/06/16 19:00 68 10/06/16 16:00 98.1 76 22 120/70 95 10/06/16 12:00 98.0 76 27 114/57 95 10/06/16 11:49 18 I/O 10/06/16 10/06/16 10/06/16 10/07/16 10/07/16 10/07/16 07:00 15:00 23:00 07:00 15:00 23:00 Intake Total 1664 ml Balance 1664 ml Intake Oral 480 ml IV Total 1184 ml # Voids 2 2 3 Result Diagram: 10/05/16 0911 10/05/16 0911 Imaging Last Impressions Chest X-Ray 10/04/16 0057 Signed Impressions: Service Date/Time: September 01:13 - CONCLUSION: No acute disease. Glenn Florence MD Knee X-Ray 10/04/16 0000 Signed Impressions: Service Date/Time: September 08:05 - CONCLUSION: Advanced osteoarthritis of the right knee with patella conrado no evidence of acute fracture or joint effusion. Niels Dallas MD Head CT 10/04/16 0000 Signed Impressions: Service Date/Time: September 02:43 - CONCLUSION: No acute disease. Glenn Florence MD Objective Remarks GENERAL: This is a well-nourished, well-developed patient, in no apparent distress. CARDIOVASCULAR: Regular rate and regular rhythm without murmurs, gallops, or rubs. RESPIRATORY: Clear to auscultation. Breath sounds equal bilaterally. No wheezes , rales, or rhonchi. GASTROINTESTINAL: Abdomen soft, non-tender, nondistended. Normal, active bowel sounds MUSCULOSKELETAL: Extremities without clubbing, cyanosis, or edema. NEURO: Alert & Oriented x4 to person, place, time, situation. Moves all ext x4 Procedures none Medications and IVs Current Medications Acetaminophen 650 mg 650 mg ONCE ONCE PO Last administered on 10/04/16 01:50 ; Start 10/04/16 at 01:00; Stop 10/04/16 at 01:01; Status DC Cefepime HCl 2000 mg/Sodium Chloride 100 ml @ 200 mls/hr ONCE STAT IV Last administered on 10/04/16 01:50; Start 10/04/16 at 00:57; Stop 10/04/16 at 01:26 ; Status DC Sodium Chloride (NS 1000 ml Inj) 1,000 ml @ 1,000 mls/hr Q1H ONCE IV Last administered on 10/04/16 01:50; Start 10/04/16 at 00:57; Stop 10/04/16 at 01:56 ; Status DC Sodium Chloride (NS Flush) 2 ml UNSCH PRN IV FLUSH FLUSH AFTER USING IV ACCESS ; Start 10/04/16 at 03:00 Sodium Chloride (NS Flush) 2 ml BID IV FLUSH Last administered on 10/06/16 21: 00; Start 10/04/16 at 09:00 Naloxone HCl 0.4 mg 0.4 mg UNSCH PRN IV SEE LABEL COMMENTS; Start 10/04/16 at 03:00 Cefepime HCl/ Sodium Chloride (Maxipime Inj/NS Inj) 100 ml @ 200 mls/hr Q12H IV Last administered on 10/06/16 03:29; Start 10/04/16 at 15:00; Stop at 10:22; Status DC Dextrose (D50w (Vial) Inj) 50 ml UNSCH PRN IV HYPOGLYCEMIA-SEE COMMENTS; Start 10/04/16 at 07:30 Glucagon (Glucagon Inj) 1 mg UNSCH PRN OTHER HYPOGLYCEMIA-SEE COMMENTS; Start 10/04/16 at 07:30 Insulin Aspart (NovoLOG SUPPLEMENTAL SCALE) 1 ACHS SLIDING SCALE SQ Last administered on 10/04/16 11:37; Start 10/04/16 at 11:00 Heparin Sodium (Porcine) (Heparin Inj) 5,000 units Q8HR SQ Last administered on 10/07/16 05:27; Start 10/04/16 at 14:00 Pantoprazole Sodium 40 mg 40 mg DAILY PO Last administered on 10/06/16 08:49; Start 10/04/16 at 09:00 Sodium Chloride (NS 1000 ml Inj) 1,000 ml @ 84 mls/hr [id number] IV Last administered on 10/04/16 09:03; Start 10/04/16 at 07:45; Stop 10/04/16 at 15:00 ; Status DC Acetaminophen (Tylenol) 650 mg Q4H PRN PO FEVER/PAIN Last administered on 10:47; Start 10/04/16 at 09:45 Albuterol Sulfate (Ventolin Hfa Inh) 2 puff Q6HR PRN INH SHORTNESS OF BREATH; Start 10/05/16 at 10:00 Bupropion HCl (Wellbutrin Sr) 150 mg BID PO Last administered on 10/06/16 21: 35; Start 10/05/16 at 21:00 Gabapentin (Neurontin) 400 mg HS PO Last administered on 10/06/16 21:35; Start 10/05/16 at 21:00 Pantoprazole Sodium (Protonix) 40 mg DAILY PO ; Start 10/06/16 at 09:00; Stop at 09:00; Status DC Tamoxifen Citrate (Nolvadex) 20 mg DAILY PO Last administered on 10/06/16 08: 49; Start 10/05/16 at 10:00 Pravastatin Sodium (Pravachol) 80 mg DAILY PO CM Last administered on 10/06/16 08:49; Start 10/05/16 at 10:00 Potassium Chloride (KCl) 10 meq ONCE ONCE PO Last administered on 10/05/16 13 :46; Start 10/05/16 at 14:00; Stop 10/05/16 at 14:01; Status DC Ondansetron HCl (Zofran Inj) 4 mg ONCE ONCE IV PUSH Last administered on 22:50; Start 10/05/16 at 22:00; Stop 10/05/16 at 22:01; Status DC Promethazine HCl (Phenergan) 12.5 mg ONCE ONCE PO Last administered on 03:29; Start 10/06/16 at 03:30; Stop 10/06/16 at 03:31; Status DC Ondansetron HCl (Zofran Inj) 4 mg Q8HR PRN IV PUSH NAUSEA Last administered on 10/06/16t 12:02; Start 10/06/16 at 12:00 A/P Assessment and Plan A/P acute encephalopathy- likely due to sepsis; suspect UTI- resolved. monitor temps- cultures negative. Bilateral knee painacute on chronic- XR with severe arthritis- continue with pain control- PT consulted. nausea/emesis- keep full liquid diet for now-antiemetics as needed- will consult GI per the patient's request ( being followed up by )-will monitor. UTIrecently treated- UC negative- stop antibiotics. Acute kidney injury- likely from dehydration;improved. diabetes mellitus; accu-check with SSI hypertension; BP controlled- DVT prophylaxis with subq Heparin Discharge Planning dc home after evaluated by GI. Chely Valles MD Oct 07, 2016 08:59
[2016-10-07] MEDS: buPROPion HCL 150 MG SUSTAINED RELEASE TAB PO SCH ×2 (09:00→21:02)
[2016-10-07] MEDS: TAMOXIFEN CITRATE 10 MG TAB PO SCH (09:00)
[2016-10-07] MEDS: SODIUM CHLORIDE 0.9% FLUSH 10 ML FLUSH IV FLUSH SCH ×2 (09:00→21:00)
[2016-10-07] MEDS: ONDANSETRON HCL 4 MG/2 ML VIAL IV PUSH PRN ×2 (10:50→21:01)
[2016-10-07] MEDS: PRAVASTATIN SOD 80 MG TAB PO SCH (10:51)
[2016-10-07] MEDS: PANTOPRAZOLE SOD 40 MG DELAYED RELEASE TAB PO SCH (10:51)
[2016-10-07] MEDS: ALBUTEROL SULFATE 90 MCG/ACT HFA 18 GM INHALER INH PRN (10:52)
[2016-10-07 12:05] VITALS: BP 166/77; PULSE 76; RESP 20; TEMP 98.6; O2SAT 95
--- NOTE | 2016-10-07 14:53 | PD.CONS ---
HPI History of Present Illness This is a 71 year old female who was brought to the ER by EMS after her daughter who lives in [place] thought she did not sound okay over the phone, so she called the patient's neighbors to check on her. Neighbors were not able to get into the house so they called 911. EMS found patient sitting on he recliner in her own feces and urine. Patient had been being treated with antibiotics as an outpatient for a recent UTI. Patient was admitted for evaluation of acute encephalopathy, likely due to sepsis, secondary to UTI, which has now resolved. GI was consulted for evaluation of persistent nausea and vomiting. Patient states she has had symptoms intermittently for a few years. Current symptoms started Saturday early in the morning around 3 am, states she threw up undigested food, which included broccoli. Denies hematemesis. States that she continues to have nausea and every time she eats anything food is regurgitating up in to her throat/mouth. States Zofran is helping improve her symptoms. Denies abdominal pain. She is a patient of Dr. Walls. Patients states she last had a EGD in Mar 2015, which showed stomach polyps, hiatal hernia that needs repair per patient. She also states that she was told that she has slow gastric emptying. Has never had GES. (Lorna Christianson) PFSH Past Medical History HTN DM COPD Breast cancer, right - 2006 chemo 2007 Past Surgical History Right rotator cuff Cholecystectomy Appendectomy Left carpel tunnel Right carpel tunnel Tumor removed 2012 from groin Right knee cartilage Left knee cartilage sx Tumor removed from left leg (Lorna Christianson) Coded Allergies: Codeine (Verified Allergy, Severe, Swelling, 10/04/16) Penicillin (Verified Allergy, Intermediate, Rash, 10/04/16) Sulfa (Verified Allergy, Intermediate, Rash, 10/04/16) Medications Current Medications Medications (Trade) Dose Ordered Sig/Marisela Route PRN Reason Start Time Stop Time Status Last Admin Dose Admin Sodium Chloride (NS Flush) 2 ml UNSCH PRN IV FLUSH FLUSH AFTER USING IV ACCESS 10/04/16 03:00 Sodium Chloride (NS Flush) 2 ml BID IV FLUSH 10/04/16 09:00 10/06/16 21:00 Naloxone HCl (Narcan Inj) 0.4 mg UNSCH PRN IV SEE LABEL COMMENTS 10/04/16 03:00 Dextrose (D50w (Vial) Inj) 50 ml UNSCH PRN IV HYPOGLYCEMIA-SEE COMMENTS 10/04/16 07:30 Glucagon (Glucagon Inj) 1 mg UNSCH PRN OTHER HYPOGLYCEMIA-SEE COMMENTS 10/04/16 07:30 Heparin Sodium (Porcine) (Heparin Inj) 5,000 units Q8HR SQ 10/04/16 14:00 10/07/16 13:28 Pantoprazole Sodium (Protonix) 40 mg DAILY PO 10/04/16 09:00 10/07/16 10:51 Acetaminophen (Tylenol) 650 mg Q4H PRN PO FEVER/PAIN 10/04/16 09:45 10/06/16 10:47 Albuterol Sulfate (Ventolin Hfa Inh) 2 puff Q6HR PRN INH SHORTNESS OF BREATH 10/05/16 10:00 10/07/16 10:52 Bupropion HCl (Wellbutrin Sr) 150 mg BID PO 10/05/16 21:00 10/07/16 09:00 Gabapentin (Neurontin) 400 mg HS PO 10/05/16 21:00 10/06/16 21:35 Tamoxifen Citrate (Nolvadex) 20 mg DAILY PO 10/05/16 10:00 10/06/16 08:49 Pravastatin Sodium (Pravachol) 80 mg DAILY PO CM 10/05/16 10:00 10/07/16 10:51 Ondansetron HCl (Zofran Inj) 4 mg Q8HR PRN IV PUSH NAUSEA 10/06/16 12:00 10/07/16 10:50 Family History Noncontributory Social History Tobacco, no current use, quit 12 yrs ago ETOH, denies Tobacco, denies (Lorna Christianson) Review of Systems Constitutional: DENIES: Diaphoretic episodes, Fatigue, Fever, Weight gain, Weight loss, Chills, Dizziness, Change in appetite, Night Sweats Endocrine: DENIES: Polydipsia, Polyuria Eyes: DENIES: Blurred vision, Photosensitivity, Double Vision Ears, nose, mouth, throat: DENIES: Hearing loss, Vertigo, Oral lesions, Throat pain, Hoarseness Respiratory: DENIES: Cough, Wheezing, Hemoptysis, Sputum production, Shortness of breath Cardiovascular: DENIES: Chest pain, Palpitations, Syncope, Lower Extremity Edema, Orthopnea, Claudication Gastrointestinal: COMPLAINS OF: Nausea, Vomiting, DENIES: Abdominal pain, Black stools, Bloody stools, Constipation, Diarrhea, Difficulty Swallowing, Anorexia, Odynophagia, Swelling of Abdomen, Heartburn, Hematemesis Genitourinary: DENIES: Urinary frequency, Urinary incontinence, Urgency, Hematuria, Dysuria, Nocturia Musculoskeletal: DENIES: Joint pain, Muscle aches, Stiffness, Joint Swelling, Back pain, Neck pain Integumentary: DENIES: Abnormal pigmentation, Nail changes, Pruritus, Rash, Jaundice Hematologic/lymphatic: DENIES: Bruising, Lymphadenopathy Immunologic/allergic: DENIES: Eczema, Urticaria Neurologic: DENIES: Abnormal gait, Headache, Localized weakness, Paresthesias Psychiatric: DENIES: Anxiety, Confusion, Mood changes, Depression, Agitation, Suicidal Ideation (Lorna Christianson) GI Exam Vitals I&O Vital Signs Date Time Temp Pulse Resp B/P Pulse Ox O2 Delivery O2 Flow Rate FiO2 10/07/16 12:05 98.6 76 20 166/77 95 10/07/16 08:01 98.3 71 20 142/67 93 10/07/16 03:50 98.5 66 18 150/67 100 10/07/16 01:49 98.9 66 18 143/64 100 10/06/16 20:39 98.5 66 18 131/81 100 10/06/16 19:00 68 10/06/16 16:00 98.1 76 22 120/70 95 I/O 10/06/16 10/06/16 10/06/16 10/07/16 10/07/16 10/07/16 07:00 15:00 23:00 07:00 15:00 23:00 Intake Total 1664 ml Balance 1664 ml Intake Oral 480 ml IV Total 1184 ml # Voids 2 2 3 Imaging Last Impressions Chest X-Ray 10/04/16 0057 Signed Impressions: Service Date/Time: September 01:13 - CONCLUSION: No acute disease. Glenn Florence MD Knee X-Ray 10/04/16 0000 Signed Impressions: Service Date/Time: September 08:05 - CONCLUSION: Advanced osteoarthritis of the right knee with patella conrado no evidence of acute fracture or joint effusion. Niels Dallas MD Head CT 10/04/16 0000 Signed Impressions: Service Date/Time: September 02:43 - CONCLUSION: No acute disease. Glenn Florence MD Laboratory Date/Time Procedure Status Source Growth 10/04/16 01:45 Urine Culture - Final Complete Urine Clean Catch NO GROWTH IN 48 HOURS. 10/04/16 01:25 Aerobic Blood Culture - Preliminary Resulted Blood Peripheral NO GROWTH IN 3 DAYS 10/04/16 01:25 Anaerobic Blood Culture - Preliminary Resulted Blood Peripheral NO GROWTH IN 3 DAYS Physical Examination HEENT: PERRLA; normocephalic; atraumatic; no jaundice. Throat is clear. NECK: Neck is supple, no JVD, no lymphadenopathy. CHEST: CTA CARDIAC: RRR with no murmur gallop or rubs. ABDOMEN: Soft, nondistended, nontender; no hepatosplenomegaly; bowel sounds are present x 4 EXTREMITIES: No clubbing, cyanosis, or edema. SKIN: Normal; no rash; no jaundice. 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 No hematemesis. Zofran does give her some relief. Reports emesis or regurgitation of food whenever she eats. EGD, Mar [address] Walls showed gastric polyps, hiatal hernia that needs repair, and slowed stomach emptying per patient. - Acute encephalopathy, likely due to sepsis secondary to UTI, resolved. - Diabetes mellitus, per attending - Hypertension, per attending PLAN - Consider EGD and GES inpatient vs outpatient - GILMA - Cont Zofran - Supportive care - Further recommendations to follow based on results of above Patient seen and examined by Dr. Mejia and myself and this note is written on his behalf. (Lorna Christianson) Physician Comments Patient Seen and examined Agree with above Continue with current supportive care Monitor labs Plan for an EGD tomorrow if negative then will pursue a gastric emptying scan ( Girish Mejia MD) Lorna Christianson Oct 07, 2016 14:53 Girish Mejia MD Oct 07, 2016 20:52
[2016-10-07 16:18] VITALS: BP 174/76; PULSE 71; RESP 20; TEMP 98.2; O2SAT 98
[2016-10-07 20:21] VITALS: BP 140/65; PULSE 76; RESP 18; TEMP 98.8; O2SAT 93
[2016-10-07] MEDS: GABAPENTIN 400 MG CAP PO SCH (21:02)
[2016-10-08] VITALS: BP 136/64; PULSE 72; RESP 18; TEMP 98.6; O2SAT 94
[2016-10-08] MEDS ORDERED: ONDANSETRON ODT 4 MG TAB PO PRN (01:30)
[2016-10-08 04:00] VITALS: BP 119/62; PULSE 71; RESP 18; TEMP 98.3; O2SAT 94
[2016-10-08] MEDS: HEPARIN SODIUM - SQ 10,000 UNITS/ML VIAL SQ SCH ×3 (06:00→22:34)
[2016-10-08] MEDS: INSULIN ASPART SUPPLEMENTAL SCALE SQ SCH ×4 (06:17→22:40)
[2016-10-08 08:00] VITALS: BP 137/67; PULSE 75; RESP 16; TEMP 98.6; O2SAT 96
[2016-10-08] MEDS ORDERED: ONDANSETRON HCL 4 MG/2 ML VIAL ONE (08:58)
[2016-10-08] MEDS: PANTOPRAZOLE SOD 40 MG DELAYED RELEASE TAB PO SCH (09:00)
[2016-10-08] MEDS: buPROPion HCL 150 MG SUSTAINED RELEASE TAB PO SCH ×2 (09:00→22:35)
[2016-10-08] MEDS: SODIUM CHLORIDE 0.9% FLUSH 10 ML FLUSH IV FLUSH SCH ×2 (09:00→21:00)
[2016-10-08] MEDS: PRAVASTATIN SOD 80 MG TAB PO SCH (09:00)
[2016-10-08] MEDS: TAMOXIFEN CITRATE 10 MG TAB PO SCH (09:00)
[2016-10-08] MEDS ORDERED: PROPOFOL 200 MG/20 ML AMP IV ONE (09:29)
--- NOTE | 2016-10-08 09:38 | PD.PROCEDR ---
GI Procedure REFERRING PHYSICIAN Alex SARAVIA PERFORMED EGD with biopsy INDICATION FOR PROCEDURE Nausea and vomiting PROCEDURE: The procedure, risks and benefits were discussed with Ms. Mason and informed consent was obtained. Anesthesia sedated her with Diprivan. She was placed in the left lateral decubitus position. EGD: The Pentax videoscope was introduced through the oropharynx and advanced to the second portion of the duodenum under direct visualization. Retroflexion was performed in the stomach. FINDINGS: Esophagus there was a long segment Cervantes's at the distal end of the esophagus extending from 25-28 multiple biopsies were taken further evaluation Stomach there was a large hiatal hernia otherwise gastric mucosa was unremarkable Duodenum this was normal ESTIMATED BLOOD LOSS: None SPECIMENS REMOVED: Esophageal biopsies COMPLICATIONS: None IMPRESSION: Long segment Cervantes's esophagus Large hiatal hernia PLAN: Continue present supportive care Continue PPI Await biopsies Recommend gastric emptying scan EGD in 2 years Follow up in clinic post discharge Girish Mejia MD Oct 08, 2016 09:38
[2016-10-08] MEDS ORDERED: DO NOT ADM ANY ANTICOAGULANT DRUGS PRN (09:40)
--- NOTE | 2016-10-08 11:40 | HHI.PR ---
Subjective Remarks in no acute distress. has on and off nausea but with no emesis. no fever. no other complaints. Objective Vitals Vital Signs Date Time Temp Pulse Resp B/P Pulse Ox O2 Delivery O2 Flow Rate FiO2 10/08/16 09:55 98.0 72 18 141/62 96 10/08/16 09:44 98.1 71 18 144/66 94 10/08/16 08:00 98.6 75 16 137/67 96 10/08/16 04:00 98.3 71 18 119/62 94 10/08/16 00:00 98.6 72 18 136/64 94 10/07/16 20:21 98.8 76 18 140/65 93 10/07/16 16:18 98.2 71 20 174/76 98 10/07/16 12:05 98.6 76 20 166/77 95 I/O 10/07/16 10/07/16 10/07/16 10/08/16 10/08/16 10/08/16 07:00 15:00 23:00 07:00 15:00 23:00 Intake Total 360 ml 120 ml Balance 360 ml 120 ml Intake Oral 360 ml 120 ml # Voids 3 2 2 # Bowel Movements 1 Result Diagram: 10/05/16 0911 10/05/16 0911 Imaging Last Impressions Chest X-Ray 10/04/16 0057 Signed Impressions: Service Date/Time: September 01:13 - CONCLUSION: No acute disease. Glenn Florence MD Knee X-Ray 10/04/16 0000 Signed Impressions: Service Date/Time: September 08:05 - CONCLUSION: Advanced osteoarthritis of the right knee with patella conrado no evidence of acute fracture or joint effusion. Niels Dallas MD Head CT 10/04/16 0000 Signed Impressions: Service Date/Time: September 02:43 - CONCLUSION: No acute disease. Glenn Florence MD Objective Remarks GENERAL: This is a well-nourished, well-developed patient, in no apparent distress. CARDIOVASCULAR: Regular rate and regular rhythm without murmurs, gallops, or rubs. RESPIRATORY: Clear to auscultation. Breath sounds equal bilaterally. No wheezes , rales, or rhonchi. GASTROINTESTINAL: Abdomen soft, non-tender, nondistended. Normal, active bowel sounds MUSCULOSKELETAL: Extremities without clubbing, cyanosis, or edema. NEURO: Alert & Oriented x4 to person, place, time, situation. Moves all ext x4 Procedures none Medications and IVs Current Medications Acetaminophen 650 mg 650 mg ONCE ONCE PO Last administered on 10/04/16 01:50 ; Start 10/04/16 at 01:00; Stop 10/04/16 at 01:01; Status DC Cefepime HCl 2000 mg/Sodium Chloride 100 ml @ 200 mls/hr ONCE STAT IV Last administered on 10/04/16 01:50; Start 10/04/16 at 00:57; Stop 10/04/16 at 01:26 ; Status DC Sodium Chloride (NS 1000 ml Inj) 1,000 ml @ 1,000 mls/hr Q1H ONCE IV Last administered on 10/04/16 01:50; Start 10/04/16 at 00:57; Stop 10/04/16 at 01:56 ; Status DC Sodium Chloride (NS Flush) 2 ml UNSCH PRN IV FLUSH FLUSH AFTER USING IV ACCESS ; Start 10/04/16 at 03:00 Sodium Chloride (NS Flush) 2 ml BID IV FLUSH Last administered on 10/07/16 21: 00; Start 10/04/16 at 09:00 Naloxone HCl 0.4 mg 0.4 mg UNSCH PRN IV SEE LABEL COMMENTS; Start 10/04/16 at 03:00 Cefepime HCl/ Sodium Chloride (Maxipime Inj/NS Inj) 100 ml @ 200 mls/hr Q12H IV Last administered on 10/06/16 03:29; Start 10/04/16 at 15:00; Stop at 10:22; Status DC Dextrose (D50w (Vial) Inj) 50 ml UNSCH PRN IV HYPOGLYCEMIA-SEE COMMENTS; Start 10/04/16 at 07:30 Glucagon (Glucagon Inj) 1 mg UNSCH PRN OTHER HYPOGLYCEMIA-SEE COMMENTS; Start 10/04/16 at 07:30 Insulin Aspart (NovoLOG SUPPLEMENTAL SCALE) 1 ACHS SLIDING SCALE SQ Last administered on 10/07/16 21:11; Start 10/04/16 at 11:00 Heparin Sodium (Porcine) (Heparin Inj) 5,000 units Q8HR SQ Last administered on 10/07/16 21:02; Start 10/04/16 at 14:00 Pantoprazole Sodium 40 mg 40 mg DAILY PO Last administered on 10/07/16 10:51; Start 10/04/16 at 09:00 Sodium Chloride (NS 1000 ml Inj) 1,000 ml @ 84 mls/hr [id number] IV Last administered on 10/04/16 09:03; Start 10/04/16 at 07:45; Stop 10/04/16 at 15:00 ; Status DC Acetaminophen (Tylenol) 650 mg Q4H PRN PO FEVER/PAIN Last administered on 10:47; Start 10/04/16 at 09:45 Albuterol Sulfate (Ventolin Hfa Inh) 2 puff Q6HR PRN INH SHORTNESS OF BREATH Last administered on 10/07/16 10:52; Start 10/05/16 at 10:00 Bupropion HCl (Wellbutrin Sr) 150 mg BID PO Last administered on 10/07/16 21: 02; Start 10/05/16 at 21:00 Gabapentin (Neurontin) 400 mg HS PO Last administered on 10/07/16 21:02; Start 10/05/16 at 21:00 Pantoprazole Sodium (Protonix) 40 mg DAILY PO ; Start 10/06/16 at 09:00; Stop at 09:00; Status DC Tamoxifen Citrate (Nolvadex) 20 mg DAILY PO Last administered on 10/06/16 08: 49; Start 10/05/16 at 10:00 Pravastatin Sodium (Pravachol) 80 mg DAILY PO CM Last administered on 10/07/16 10:51; Start 10/05/16 at 10:00 Potassium Chloride (KCl) 10 meq ONCE ONCE PO Last administered on 10/05/16 13 :46; Start 10/05/16 at 14:00; Stop 10/05/16 at 14:01; Status DC Ondansetron HCl (Zofran Inj) 4 mg ONCE ONCE IV PUSH Last administered on 22:50; Start 10/05/16 at 22:00; Stop 10/05/16 at 22:01; Status DC Promethazine HCl (Phenergan) 12.5 mg ONCE ONCE PO Last administered on 03:29; Start 10/06/16 at 03:30; Stop 10/06/16 at 03:31; Status DC Ondansetron HCl (Zofran Inj) 4 mg Q8HR PRN IV PUSH NAUSEA Last administered on 10/07/16 21:01; Start 10/06/16 at 12:00 Ondansetron HCl (Zofran Odt) 8 mg TID PRN PO NAUSEA OR VOMITING; Start at 01:30 Ondansetron HCl (Zofran Inj) 4 mg STK-MED ONCE .ROUTE ; Start 10/08/16 at 08:58 ; Stop 10/08/16 at 08:59; Status DC Propofol (Diprivan 200 Mg/20 ml Inj) 150 mg STK-MED ONCE IV ; Start 10/08/16 at 09:29; Stop 10/08/16 at 09:57; Status DC Miscellaneous Information ALL NURSING DEPARTME... UNSCH PRN .XX SEE LABEL COMMENTS; Start 10/08/16 at 09:40; Stop 10/09/16 at 09:39 A/P Assessment and Plan A/P acute encephalopathy- likely due to sepsis; suspect UTI- resolved. monitor temps- cultures negative. Bilateral knee painacute on chronic- XR with severe arthritis- continue with pain control- PT consulted. nausea/emesis- GI consult appreciated- s/p EGD with Barrette's esophagus and hiatal hernia- gastric emptying study pending- UTIrecently treated- UC negative. Acute kidney injury- likely from dehydration;improved. diabetes mellitus; accu-check with SSI hypertension; BP controlled- DVT prophylaxis with subq Heparin Discharge Planning dc home after GI evaluation completed- Chely Valles MD Oct 08, 2016 11:40
--- NOTE | 2016-10-08 11:54 | HHI.FF ---
Face to Face Verification Diagnosis: (1) General weakness Physical Therapy Order: Evaluate and Treat Home Health Nursing Order: Medical education Signs/symptoms of disease process Medication education-adverse effect Nursing assessment with vital signs I have seen patient Micheline Mason on 10/08/16. My clinical findings support the need for the requested home health care services because: Ltd mobility - disease progression I certify that my clinical findings support that this patient is homebound because: Unsteady gait/balance Chely Valles MD Oct 08, 2016 11:54
[2016-10-08 12:00] VITALS: BP 175/77; PULSE 71; RESP 18; TEMP 98.8; O2SAT 96
[2016-10-08] MEDS: ACETAMINOPHEN 325 MG TAB PO PRN (15:44)
[2016-10-08 16:00] VITALS: BP 170/74; PULSE 72; RESP 16; TEMP 99.1; O2SAT 94
--- NOTE | 2016-10-08 16:48 | EKG ---
Date Performed: 10/07/2016 Time Performed: 22:31:21 PTAGE: 71 years EKG: Sinus rhythm MARKED LEFT AXIS DEVIATION MODERATE VOLTAGE CRITERIA FOR LVH, CONSIDER NORMAL VARIANT ABNORMAL ECG PREVIOUS TRACING : 10/04/2016 00.55 Since previous tracing, no significant change noted DOCTOR: Galdino Jones Interpretating Date/Time 10/08/2016 16:46:12
[2016-10-08 20:00] VITALS: BP_SYST 147; BP_SYST 165; BP_DIAS 67; BP_DIAS 73; PULSE 70; PULSE 73; RESP 18; RESP 20; TEMP 98.6; TEMP 98.8; O2SAT 92; O2SAT 94
[2016-10-08] MEDS: GABAPENTIN 400 MG CAP PO SCH (22:35)
[2016-10-08] MEDS: ONDANSETRON HCL 4 MG/2 ML VIAL IV PUSH PRN (22:44)
[2016-10-09 04:00] VITALS: BP 134/75; PULSE 71; RESP 20; TEMP 98.8; O2SAT 95
[2016-10-09] MEDS: INSULIN ASPART SUPPLEMENTAL SCALE SQ SCH ×4 (06:21→20:44)
[2016-10-09] MEDS: HEPARIN SODIUM - SQ 10,000 UNITS/ML VIAL SQ SCH ×3 (06:22→21:25)
[2016-10-09 08:00] VITALS: BP 139/68; PULSE 74; RESP 18; TEMP 99.1; O2SAT 96
[2016-10-09] MEDS: SODIUM CHLORIDE 0.9% FLUSH 10 ML FLUSH IV FLUSH SCH ×2 (09:00→20:45)
[2016-10-09] MEDS ORDERED: METOCLOPRAMIDE HCL 10 MG/2 ML VIAL ONE (09:33)
[2016-10-09 12:00] VITALS: BP 163/73; PULSE 80; RESP 16; TEMP 98.4; O2SAT 95
[2016-10-09] MEDS: PRAVASTATIN SOD 80 MG TAB PO SCH (12:14)
[2016-10-09] MEDS: TAMOXIFEN CITRATE 10 MG TAB PO SCH (12:15)
[2016-10-09] MEDS: PANTOPRAZOLE SOD 40 MG DELAYED RELEASE TAB PO SCH (12:15)
[2016-10-09] MEDS: buPROPion HCL 150 MG SUSTAINED RELEASE TAB PO SCH ×2 (12:15→20:45)
[2016-10-09] MEDS ORDERED: ADJUSTABLE COMM1 MIS (12:15)
--- NOTE | 2016-10-09 12:18 | HHI.PR ---
Subjective Remarks resting comfortably with no distress. has some nausea but no other new complaints. d/w the RN and no acute issues over night. Objective Vitals Vital Signs Date Time Temp Pulse Resp B/P Pulse Ox O2 Delivery O2 Flow Rate FiO2 10/09/16 08:00 99.1 74 18 139/68 96 10/09/16 04:00 98.8 71 20 134/75 95 10/08/16 20:00 98.6 73 20 165/73 92 10/08/16 20:00 98.8 70 18 147/67 94 10/08/16 16:00 99.1 72 16 170/74 94 I/O 10/08/16 10/08/16 10/08/16 10/09/16 10/09/16 10/09/16 06:59 14:59 22:59 06:59 14:59 22:59 Intake Total 1080 ml 360 ml Output Total 2 ml Balance 1078 ml 360 ml Intake Oral 1080 ml 360 ml Output Urine Total 2 ml # Voids 2 1 Result Diagram: 10/05/16 0911 10/05/16 0911 Imaging Last Impressions Chest X-Ray 10/04/16 0057 Signed Impressions: Service Date/Time: September 01:13 - CONCLUSION: No acute disease. Glenn Florence MD Knee X-Ray 10/04/16 0000 Signed Impressions: Service Date/Time: September 08:05 - CONCLUSION: Advanced osteoarthritis of the right knee with patella conrado no evidence of acute fracture or joint effusion. Niels Dallas MD Head CT 10/04/16 0000 Signed Impressions: Service Date/Time: September 02:43 - CONCLUSION: No acute disease. Glenn Florence MD Objective Remarks GENERAL: This is a well-nourished, well-developed patient, in no apparent distress. CARDIOVASCULAR: Regular rate and regular rhythm without murmurs, gallops, or rubs. RESPIRATORY: Clear to auscultation. Breath sounds equal bilaterally. No wheezes , rales, or rhonchi. GASTROINTESTINAL: Abdomen soft, non-tender, nondistended. Normal, active bowel sounds MUSCULOSKELETAL: Extremities without clubbing, cyanosis, or edema. NEURO: Alert & Oriented x4 to person, place, time, situation. Moves all ext x4 Procedures EGD Medications and IVs Current Medications Acetaminophen 650 mg 650 mg ONCE ONCE PO Last administered on 10/04/16 01:50 ; Start 10/04/16 at 01:00; Stop 10/04/16 at 01:01; Status DC Cefepime HCl 2000 mg/Sodium Chloride 100 ml @ 200 mls/hr ONCE STAT IV Last administered on 10/04/16 01:50; Start 10/04/16 at 00:57; Stop 10/04/16 at 01:26 ; Status DC Sodium Chloride (NS 1000 ml Inj) 1,000 ml @ 1,000 mls/hr Q1H ONCE IV Last administered on 10/04/16 01:50; Start 10/04/16 at 00:57; Stop 10/04/16 at 01:56 ; Status DC Sodium Chloride (NS Flush) 2 ml UNSCH PRN IV FLUSH FLUSH AFTER USING IV ACCESS ; Start 10/04/16 at 03:00 Sodium Chloride (NS Flush) 2 ml BID IV FLUSH Last administered on 10/08/16 21: 00; Start 10/04/16 at 09:00 Naloxone HCl 0.4 mg 0.4 mg UNSCH PRN IV SEE LABEL COMMENTS; Start 10/04/16 at 03:00 Cefepime HCl/ Sodium Chloride (Maxipime Inj/NS Inj) 100 ml @ 200 mls/hr Q12H IV Last administered on 10/06/16 03:29; Start 10/04/16 at 15:00; Stop at 10:22; Status DC Dextrose (D50w (Vial) Inj) 50 ml UNSCH PRN IV HYPOGLYCEMIA-SEE COMMENTS; Start 10/04/16 at 07:30 Glucagon (Glucagon Inj) 1 mg UNSCH PRN OTHER HYPOGLYCEMIA-SEE COMMENTS; Start 10/04/16 at 07:30 Insulin Aspart (NovoLOG SUPPLEMENTAL SCALE) 1 ACHS SLIDING SCALE SQ Last administered on 10/07/16 21:11; Start 10/04/16 at 11:00 Heparin Sodium (Porcine) (Heparin Inj) 5,000 units Q8HR SQ Last administered on 10/09/16 06:22; Start 10/04/16 at 14:00 Pantoprazole Sodium 40 mg 40 mg DAILY PO Last administered on 10/07/16 10:51; Start 10/04/16 at 09:00 Sodium Chloride (NS 1000 ml Inj) 1,000 ml @ 84 mls/hr [id number] IV Last administered on 10/04/16 09:03; Start 10/04/16 at 07:45; Stop 10/04/16 at 15:00 ; Status DC Acetaminophen (Tylenol) 650 mg Q4H PRN PO FEVER/PAIN Last administered on 15:44; Start 10/04/16 at 09:45 Albuterol Sulfate (Ventolin Hfa Inh) 2 puff Q6HR PRN INH SHORTNESS OF BREATH Last administered on 10/07/16 10:52; Start 10/05/16 at 10:00 Bupropion HCl (Wellbutrin Sr) 150 mg BID PO Last administered on 10/08/16 22: 35; Start 10/05/16 at 21:00 Gabapentin (Neurontin) 400 mg HS PO Last administered on 10/08/16 22:35; Start 10/05/16 at 21:00 Pantoprazole Sodium (Protonix) 40 mg DAILY PO ; Start 10/06/16 at 09:00; Stop at 09:00; Status DC Tamoxifen Citrate (Nolvadex) 20 mg DAILY PO Last administered on 10/06/16 08: 49; Start 10/05/16 at 10:00 Pravastatin Sodium (Pravachol) 80 mg DAILY PO CM Last administered on 10/07/16 10:51; Start 10/05/16 at 10:00 Potassium Chloride (KCl) 10 meq ONCE ONCE PO Last administered on 10/05/16 13 :46; Start 10/05/16 at 14:00; Stop 10/05/16 at 14:01; Status DC Ondansetron HCl (Zofran Inj) 4 mg ONCE ONCE IV PUSH Last administered on 22:50; Start 10/05/16 at 22:00; Stop 10/05/16 at 22:01; Status DC Promethazine HCl (Phenergan) 12.5 mg ONCE ONCE PO Last administered on 03:29; Start 10/06/16 at 03:30; Stop 10/06/16 at 03:31; Status DC Ondansetron HCl (Zofran Inj) 4 mg Q8HR PRN IV PUSH NAUSEA Last administered on 10/08/16 22:44; Start 10/06/16 at 12:00 Ondansetron HCl (Zofran Odt) 8 mg TID PRN PO NAUSEA OR VOMITING; Start at 01:30 Ondansetron HCl (Zofran Inj) 4 mg STK-MED ONCE .ROUTE ; Start 10/08/16 at 08:58 ; Stop 10/08/16 at 08:59; Status DC Propofol (Diprivan 200 Mg/20 ml Inj) 150 mg STK-MED ONCE IV ; Start 10/08/16 at 09:29; Stop 10/08/16 at 09:57; Status DC Miscellaneous Information ALL NURSING DEPARTME... UNSCH PRN .XX SEE LABEL COMMENTS; Start 10/08/16 at 09:40; Stop 10/09/16 at 09:39; Status DC Metoclopramide HCl (Reglan Inj) 10 mg STK-MED ONCE .ROUTE Last administered on 10/09/16 09:33; Start 10/09/16 at 09:33; Stop 10/09/16 at 09:34; Status DC A/P Assessment and Plan A/P acute encephalopathy- likely due to sepsis; suspect UTI- resolved. monitor temps- cultures negative. Bilateral knee painacute on chronic- XR with severe arthritis- continue with pain control- PT consulted. nausea/emesis- GI consult appreciated- s/p EGD with Barrette's esophagus and hiatal hernia- gastric emptying study pending- will start on full liquid diet and advance as she tolerates- d/w GI today. UTIrecently treated- UC negative. Acute kidney injury- likely from dehydration;improved. diabetes mellitus; accu-check with SSI hypertension; BP controlled- DVT prophylaxis with subq Heparin Discharge Planning dc home when ok with GI. Chely Valles MD Oct 09, 2016 12:17
[2016-10-09 12:38] LABS: HEMATOCRIT 33.7 % (35.0-46.0); MEAN CELL VOLUME 89.7 FL (80.0-100.0); MEAN CORPUSCULAR HEMOGLOBIN 29.5 PG (27.0-34.0); MEAN CORPUSCULAR HGB CONC 32.9 % (32.0-36.0); PLATELET COUNT 328 TH/MM3 (150-450); RED BLOOD COUNT 3.76 MIL/MM3 (4.00-5.30); RED CELL DISTRIBUTION WIDTH 14.9 % (11.6-17.2); REVIEW FLAG FINAL; WHITE BLOOD COUNT 6.7 TH/MM3 (4.0-11.0)
[2016-10-09 13:13] LABS: ALT (GPT) 33 U/L (10-53); ANION GAP 8 MEQ/L (5-15); AST (GOT) 26 U/L (15-37); BICARBONATE 26.7 MEQ/L (21.0-32.0); BLOOD UREA NITROGEN 7 MG/DL (7-18); CHLORIDE 105 MEQ/L (98-107); GLOMERULAR FILTRATION RATE 81 ML/MIN (>89); POTASSIUM 3.4 MEQ/L (3.5-5.1); SODIUM (NA) 140 MEQ/L (136-145)
[2016-10-09 13:16] LABS: ALKALINE PHOSPHATASE 84 U/L (45-117); TOTAL BILIRUBIN ADULT 0.2 MG/DL (0.2-1.0)
[2016-10-09] MEDS: ONDANSETRON HCL 4 MG/2 ML VIAL IV PUSH PRN ×2 (14:27→21:26)
--- NOTE | 2016-10-09 15:56 | HHI.GIFU ---
Subjective Remarks Pt resting in bed. Says she has been nauseous today but is tolerating full liquid diet. NO other complaints. (Emily Dickson) Objective Vitals I&O Vital Signs Date Time Temp Pulse Resp B/P Pulse Ox O2 Delivery O2 Flow Rate FiO2 10/09/16 12:00 98.4 80 16 163/73 95 10/09/16 08:00 99.1 74 18 139/68 96 10/09/16 04:00 98.8 71 20 134/75 95 10/08/16 20:00 98.6 73 20 165/73 92 10/08/16 20:00 98.8 70 18 147/67 94 10/08/16 16:00 99.1 72 16 170/74 94 I/O 10/08/16 10/08/16 10/08/16 10/09/16 10/09/16 10/09/16 07:00 15:00 23:00 07:00 15:00 23:00 Intake Total 1080 ml 360 ml 960 ml Output Total 2 ml Balance 1078 ml 360 ml 960 ml Intake Oral 1080 ml 360 ml 960 ml Output Urine Total 2 ml # Voids 2 1 1 Laboratory Laboratory Tests Test 10/09/16 12:02 White Blood Count 6.7 Red Blood Count 3.76 Hemoglobin 11.1 Hematocrit 33.7 Mean Corpuscular Volume 89.7 Mean Corpuscular Hemoglobin 29.5 Mean Corpuscular Hemoglobin 32.9 Concent Red Cell Distribution Width 14.9 Platelet Count 328 Mean Platelet Volume 7.8 Sodium Level 140 Potassium Level 3.4 Chloride Level 105 Carbon Dioxide Level 26.7 Anion Gap 8 Blood Urea Nitrogen 7 Creatinine 0.71 Estimat Glomerular Filtration 81 Rate Random Glucose 133 Calcium Level 8.4 Total Bilirubin 0.2 Aspartate Amino Transf 26 (AST/SGOT) Alanine Aminotransferase 33 (ALT/SGPT) Alkaline Phosphatase 84 Total Protein 7.0 Albumin 2.5 Imaging Last Impressions Chest X-Ray 10/04/16 0057 Signed Impressions: Service Date/Time: September 01:13 - CONCLUSION: No acute disease. Glenn Florence MD Knee X-Ray 10/04/16 0000 Signed Impressions: Service Date/Time: September 08:05 - CONCLUSION: Advanced osteoarthritis of the right knee with patella conrado no evidence of acute fracture or joint effusion. Niels Dallas MD Head CT 10/04/16 0000 Signed Impressions: Service Date/Time: September 02:43 - CONCLUSION: No acute disease. Glenn Florence MD Physical Exam HEENT: PERRL; normocephalic; atraumatic; no jaundice. CHEST: CTA CARDIAC: RRR ABDOMEN: Soft, nondistended, nontender; no hepatosplenomegaly; bowel sounds are present in all four quadrants. EXTREMITIES: No clubbing, cyanosis, or edema. SKIN: Normal; no rash; no jaundice. SEPARATIONS SCIENTIST: No focal deficits; alert and oriented times three. (Emily Dickson) Assessment and Plan Plan ASSESSMENT - Nausea/emesis, no abdominal pain. No hematemesis. Zofran does give her some relief. Reports emesis or regurgitation of food whenever she eats. EGD, Mar [address] Walls showed gastric polyps, hiatal hernia that needs repair, and slowed stomach emptying per patient. s/p EGD 10-08-16--> barett's, large hiatal hernia. GES pending - Acute encephalopathy, likely due to sepsis secondary to UTI, resolved. - Diabetes mellitus, per attending - Hypertension, per attending PLAN - await biopsies - cont PPI - await GES - GILMA - Cont Zofran - Supportive care - EGD 2 years - f/u with GI as outpatient - Further recommendations to follow based on results of above Patient seen and examined by Dr. Mejia and myself and this note is written on his behalf. (Emily Dickson) Physician Comments Patient seen and examined Agree with above Continue current supportive care Monitor labs Gastric emptying scan unremarkable No clear etiology for the nausea and vomiting The approach would be to treat with anti-emetics as needed when needed Follow-up with GI post discharge (Girish Mejia MD) Emily Dickson Oct 09, 2016 15:56 Girish Mejia MD Oct 09, 2016 18:52
[2016-10-09 16:00] VITALS: BP 158/72; PULSE 76; RESP 14; TEMP 98; O2SAT 96
--- NOTE | 2016-10-09 16:52 | RADRPT ---
EXAM DATE/TIME: 10/09/2016 09:02 [facility] COMPARISON: No previous studies available for comparison. INDICATIONS : Nausea and vomiting. DOSE: 1 mCi Tc99m Sulfur Colloid Labeled Whole egg PO MEDICATONS: 1.) 5 mg Reglan IV at minutes IMAGIN hrs MEDICAL HISTORY : Gastroesophageal reflux disease. Hernia, hiatal. Diabetes mellitus type 2. Hypertension. Breast cance r. SURGICAL HISTORY : Tubal ligation. ENCOUNTER: Initial ACUITY: 1 day PAIN SCALE: 0/10 LOCATION: upper quadrant TECHNIQUE: Following the oral ingestion of radiotracer-labeled meal, dynamic sequential images in the ICELANDIC projec tion were acquired with simultaneous computer acquisition. The data set was decay-corrected. FINDINGS: LAG PHASE: There is 22 minutes before onset of gastric emptying. EMPTYING: Gastric emptying kinetics are linear. The decay-corrected, back-extrapolated half-time of emptying i s 82 minutes. The half-emptying time beginning at the end of the lipase is 60 minutes. (Normal for t his lab is 45- 90 minutes.) INTERVENTION: There was emptying of the upper stomach following Reglan. CONCLUSION: The gastric emptying kinetics are within normal limits. Hernando Castellon MD on October 09, 2016 at 16:49 Board Certified Radiologist. This report was verified electronically.
[2016-10-09 20:00] VITALS: BP 155/63; PULSE 81; PULSE 89; RESP 20; TEMP 99; O2SAT 94
[2016-10-09] MEDS: GABAPENTIN 400 MG CAP PO SCH (20:45)
[2016-10-10] VITALS (9 sets, daily range): BP systolic 128–172; BP diastolic 60–72; PULSE 73–79; RESP 17–20; TEMP 98.7–99; O2SAT 92–95
[2016-10-10] MEDS: INSULIN ASPART SUPPLEMENTAL SCALE SQ SCH ×4 (05:57→21:23)
[2016-10-10] MEDS: HEPARIN SODIUM - SQ 10,000 UNITS/ML VIAL SQ SCH ×3 (05:58→21:24)
[2016-10-10] MEDS: ALBUTEROL SULFATE 90 MCG/ACT HFA 18 GM INHALER INH PRN (08:20)
[2016-10-10] MEDS: PANTOPRAZOLE SOD 40 MG DELAYED RELEASE TAB PO SCH (09:39)
[2016-10-10] MEDS: buPROPion HCL 150 MG SUSTAINED RELEASE TAB PO SCH ×2 (09:39→21:31)
[2016-10-10] MEDS: PRAVASTATIN SOD 80 MG TAB PO SCH (09:39)
[2016-10-10] MEDS: TAMOXIFEN CITRATE 10 MG TAB PO SCH (09:39)
[2016-10-10] MEDS: SODIUM CHLORIDE 0.9% FLUSH 10 ML FLUSH IV FLUSH SCH ×2 (09:40→21:24)
--- NOTE | 2016-10-10 11:15 | HHI.PR ---
Subjective Remarks in no acute distress. tolerating full liquid diet and asking for solid food. d/w the RN and no acute issues over night. Objective Vitals Vital Signs Date Time Temp Pulse Resp B/P Pulse Ox O2 Delivery O2 Flow Rate FiO2 10/10/16 08:00 98.9 74 17 160/67 95 10/10/16 04:00 98.7 73 20 128/61 92 10/10/16 00:00 98.8 75 20 132/60 94 10/09/16 20:00 99.0 81 20 155/63 94 10/09/16 20:00 89 10/09/16 16:00 98.0 76 14 158/72 96 10/09/16 12:00 98.4 80 16 163/73 95 I/O 10/09/16 10/09/16 10/09/16 10/10/16 10/10/16 10/10/16 07:00 15:00 23:00 07:00 15:00 23:00 Intake Total 960 ml Balance 960 ml Intake Oral 960 ml # Voids 1 1 1 1 Result Diagram: 10/09/16 1202 10/09/16 1202 Imaging Last Impressions Gastric Emptying Nuclear Medicine 10/08/16 0000 Signed Impressions: Service Date/Time: Sunday, October 09, 2016 09:02 - CONCLUSION: The gastric emptying kinetics are within normal limits. Hernando Castellon MD Chest X-Ray 10/04/16 0057 Signed Impressions: Service Date/Time: September 01:13 - CONCLUSION: No acute disease. Glenn Florence MD Knee X-Ray 10/04/16 0000 Signed Impressions: Service Date/Time: September 08:05 - CONCLUSION: Advanced osteoarthritis of the right knee with patella conrado no evidence of acute fracture or joint effusion. Niels Dallas MD Head CT 10/04/16 0000 Signed Impressions: Service Date/Time: September 02:43 - CONCLUSION: No acute disease. Glenn Florence MD Objective Remarks GENERAL: This is a well-nourished, well-developed patient, in no apparent distress. CARDIOVASCULAR: Regular rate and regular rhythm without murmurs, gallops, or rubs. RESPIRATORY: Clear to auscultation. Breath sounds equal bilaterally. No wheezes , rales, or rhonchi. GASTROINTESTINAL: Abdomen soft, non-tender, nondistended. Normal, active bowel sounds MUSCULOSKELETAL: Extremities without clubbing, cyanosis, or edema. NEURO: Alert & Oriented x4 to person, place, time, situation. Moves all ext x4 Procedures EGD Medications and IVs Current Medications Acetaminophen 650 mg 650 mg ONCE ONCE PO Last administered on 10/04/16 01:50 ; Start 10/04/16 at 01:00; Stop 10/04/16 at 01:01; Status DC Cefepime HCl 2000 mg/Sodium Chloride 100 ml @ 200 mls/hr ONCE STAT IV Last administered on 10/04/16 01:50; Start 10/04/16 at 00:57; Stop 10/04/16 at 01:26 ; Status DC Sodium Chloride (NS 1000 ml Inj) 1,000 ml @ 1,000 mls/hr Q1H ONCE IV Last administered on 10/04/16 01:50; Start 10/04/16 at 00:57; Stop 10/04/16 at 01:56 ; Status DC Sodium Chloride (NS Flush) 2 ml UNSCH PRN IV FLUSH FLUSH AFTER USING IV ACCESS ; Start 10/04/16 at 03:00 Sodium Chloride (NS Flush) 2 ml BID IV FLUSH Last administered on 10/10/16 09: 40; Start 10/04/16 at 09:00 Naloxone HCl 0.4 mg 0.4 mg UNSCH PRN IV SEE LABEL COMMENTS; Start 10/04/16 at 03:00 Cefepime HCl/ Sodium Chloride (Maxipime Inj/NS Inj) 100 ml @ 200 mls/hr Q12H IV Last administered on 10/06/16 03:29; Start 10/04/16 at 15:00; Stop at 10:22; Status DC Dextrose (D50w (Vial) Inj) 50 ml UNSCH PRN IV HYPOGLYCEMIA-SEE COMMENTS; Start 10/04/16 at 07:30 Glucagon (Glucagon Inj) 1 mg UNSCH PRN OTHER HYPOGLYCEMIA-SEE COMMENTS; Start 10/04/16 at 07:30 Insulin Aspart (NovoLOG SUPPLEMENTAL SCALE) 1 ACHS SLIDING SCALE SQ Last administered on 10/09/16 20:44; Start 10/04/16 at 11:00 Heparin Sodium (Porcine) (Heparin Inj) 5,000 units Q8HR SQ Last administered on 10/10/16 05:58; Start 10/04/16 at 14:00 Pantoprazole Sodium 40 mg 40 mg DAILY PO Last administered on 10/10/16 09:39; Start 10/04/16 at 09:00 Sodium Chloride (NS 1000 ml Inj) 1,000 ml @ 84 mls/hr [id number] IV Last administered on 10/04/16 09:03; Start 10/04/16 at 07:45; Stop 10/04/16 at 15:00 ; Status DC Acetaminophen (Tylenol) 650 mg Q4H PRN PO FEVER/PAIN Last administered on 15:44; Start 10/04/16 at 09:45 Albuterol Sulfate (Ventolin Hfa Inh) 2 puff Q6HR PRN INH SHORTNESS OF BREATH Last administered on 10/10/16 08:20; Start 10/05/16 at 10:00 Bupropion HCl (Wellbutrin Sr) 150 mg BID PO Last administered on 10/10/16 09: 39; Start 10/05/16 at 21:00 Gabapentin (Neurontin) 400 mg HS PO Last administered on 10/09/16 20:45; Start 10/05/16 at 21:00 Pantoprazole Sodium (Protonix) 40 mg DAILY PO ; Start 10/06/16 at 09:00; Stop at 09:00; Status DC Tamoxifen Citrate (Nolvadex) 20 mg DAILY PO Last administered on 10/10/16 09: 39; Start 10/05/16 at 10:00 Pravastatin Sodium (Pravachol) 80 mg DAILY PO CM Last administered on 10/10/16 09:39; Start 10/05/16 at 10:00 Potassium Chloride (KCl) 10 meq ONCE ONCE PO Last administered on 10/05/16 13 :46; Start 10/05/16 at 14:00; Stop 10/05/16 at 14:01; Status DC Ondansetron HCl (Zofran Inj) 4 mg ONCE ONCE IV PUSH Last administered on 22:50; Start 10/05/16 at 22:00; Stop 10/05/16 at 22:01; Status DC Promethazine HCl (Phenergan) 12.5 mg ONCE ONCE PO Last administered on 03:29; Start 10/06/16 at 03:30; Stop 10/06/16 at 03:31; Status DC Ondansetron HCl (Zofran Inj) 4 mg Q8HR PRN IV PUSH NAUSEA Last administered on 10/09/16 21:26; Start 10/06/16 at 12:00 Ondansetron HCl (Zofran Odt) 8 mg TID PRN PO NAUSEA OR VOMITING; Start at 01:30; Status Hold Ondansetron HCl (Zofran Inj) 4 mg STK-MED ONCE .ROUTE ; Start 10/08/16 at 08:58 ; Stop 10/08/16 at 08:59; Status DC Propofol (Diprivan 200 Mg/20 ml Inj) 150 mg STK-MED ONCE IV ; Start 10/08/16 at 09:29; Stop 10/08/16 at 09:57; Status DC Miscellaneous Information ALL NURSING DEPARTME... UNSCH PRN .XX SEE LABEL COMMENTS; Start 10/08/16 at 09:40; Stop 10/09/16 at 09:39; Status DC Metoclopramide HCl (Reglan Inj) 10 mg STK-MED ONCE .ROUTE Last administered on 10/09/16 09:33; Start 10/09/16 at 09:33; Stop 10/09/16 at 09:34; Status DC A/P Assessment and Plan A/P acute encephalopathy- likely due to sepsis; suspect UTI- resolved. monitor temps- cultures negative. Bilateral knee painacute on chronic- XR with severe arthritis- continue with pain control- PT consulted. nausea/emesis- GI consult appreciated- s/p EGD with Barrette's esophagus and hiatal hernia- gastric emptying study unremarkable. advance the diet. UTIrecently treated- UC negative. Acute kidney injury- likely from dehydration;improved. diabetes mellitus; accu-check with SSI hypertension; BP controlled- DVT prophylaxis with subq Heparin Discharge Planning dc home this afternoon if tolerates the diet. see med list. f/u; pcp and GI. d/w the patient and GI. Chely Valles MD Oct 10, 2016 11:15
--- NOTE | 2016-10-10 11:18 | HHI.DS ---
Discharge Summary Admission Date Oct 04, 2016 at 03:03 Discharge Date: Oct 10, 2016 Admitting Diagnosis Sepsis (1) Altered mental status ICD Code: R41.82 Diagnosis: Principal Procedures EGD Brief History - From Admission History from patient, ER physician to medication, and review of medical records. Patient was brought in by EMS after her daughter who lives in [place] thought that she was not sound in right over the phone and called patient's neighbor to check on her. When the neighbor was not able to get into the house , he called 911. According to ER report, EMS had reported to ER physician that patient was found sitting on her recliner soaked in her feces and urine. Patient was being treated with antibiotics as an outpatient for a recent UTI. Patient upon arrival to ER and in communication with both myself and the ER physician, was entirely awake, alert, oriented. Patient is actually quite sharp and remembers the details for her age. Patient also me that she she is a known diabetic who is on glimepiride at home. She stated her PCP has started her on invokana 100 mg recently. She states that she has checked her blood sugars at home and has been lower than normal. She stated at 10:30 AM her blood sugar was 96, and at 3:30 PM it was 111, and at 8 PM blood sugar was 129. She states her blood sugars usually is in the 240s and 266. She reports she remember getting up from her recliner and making dinner at around 4 PM. She reports she also was sitting on that recliner after this 4 PM and was not really able to get up. She stated she checked her blood sugars at around 8 PM. Her daughter must have called her after this she stated. She denies any falls. She states that one her neighbor was checking on her, she was aware of it but she just was not able to get up from her recliner to open the door. She states the reason for this was because she has bilateral knee pains. She states she usually suffers from pains in her knees because of her osteoarthritis. However in the Past couple of days, her knee pains have been getting worse. She thinks that for past 2 days or so, she was not able to walk well. She states she usually uses a walker to walk at home. When she goes outside of home, she would use a scooter. Patient denies any fevers at home or at the time of her visit to her doctor's office. She was found to have UTI and was started on antibiotics. She does not remember the name of the antibiotics but she thinks that it begins with N. Possibly nitrofurantoin. She denies any urinary burning or pain on urination. She reports of diarrhea for the past 3 days after the start of her antibiotics. However states it only is once a day diarrhea. Is not foul-smelling. She reports she is short of breath for a long time, almost a year now. She has history of COPD. Not on home oxygen. Uses inhalers. CBC/BMP: 10/09/16 1202 10/09/16 1202 Significant Findings Laboratory Tests Test 10/09/16 12:02 Red Blood Count 3.76 MIL/MM3 (4.00-5.30) Hemoglobin 11.1 GM/DL (11.6-15.3) Hematocrit 33.7 % (35.0-46.0) Potassium Level 3.4 MEQ/L (3.5-5.1) Estimat Glomerular Filtration 81 ML/MIN (>89) Rate Random Glucose 133 MG/DL (74-106) Calcium Level 8.4 MG/DL (8.5-10.1) Albumin 2.5 GM/DL (3.4-5.0) Imaging Last Impressions Gastric Emptying Nuclear Medicine 10/08/16 0000 Signed Impressions: Service Date/Time: Sunday, October 09, 2016 09:02 - CONCLUSION: The gastric emptying kinetics are within normal limits. Hernando Castellon MD Chest X-Ray 10/04/16 0057 Signed Impressions: Service Date/Time: September 01:13 - CONCLUSION: No acute disease. Glenn Florence MD Knee X-Ray 10/04/16 0000 Signed Impressions: Service Date/Time: September 08:05 - CONCLUSION: Advanced osteoarthritis of the right knee with patella conrado no evidence of acute fracture or joint effusion. Niels Dallas MD Head CT 10/04/16 0000 Signed Impressions: Service Date/Time: September 02:43 - CONCLUSION: No acute disease. Glenn Florence MD PE at Discharge GENERAL: This is a well-nourished, well-developed patient, in no apparent distress. CARDIOVASCULAR: Regular rate and regular rhythm without murmurs, gallops, or rubs. RESPIRATORY: Clear to auscultation. Breath sounds equal bilaterally. No wheezes , rales, or rhonchi. GASTROINTESTINAL: Abdomen soft, non-tender, nondistended. Normal, active bowel sounds MUSCULOSKELETAL: Extremities without clubbing, cyanosis, or edema. NEURO: Alert & Oriented x4 to person, place, time, situation. Moves all ext x4 Hospital Course acute encephalopathy- likely due to sepsis; suspect UTI- resolved. monitor temps- cultures negative. Bilateral knee painacute on chronic- XR with severe arthritis- continue with pain control- PT consulted. nausea/emesis- GI consult appreciated- s/p EGD with Barrette's esophagus and hiatal hernia- gastric emptying study unremarkable. advance the diet. UTIrecently treated- UC negative. Acute kidney injury- likely from dehydration;improved. diabetes mellitus; accu-check with SSI hypertension; BP controlled- DVT prophylaxis with subq Heparin Pt Condition on Discharge: Fair Discharge Disposition: Disch w/ Home Health Serv Discharge Time: <= 30 minutes Discharge Instructions DIET: Follow Instructions for: Heart Healthy Diet, Diabetic Diet Activities you can perform: Regular-No Restrictions Follow up Referrals: Gastroenterology PCP Follow-up New Medications: Adjustable Commode 3-in-1 (Adjustable Commode 3-in-1) 1 Mis Mis 1 EA .ROUTE DIRECTED #1 EA Glimepiride (Glimepiride) 1 Mg Tab 1 MG PO DAILY Take with breakfast or first main meal Blood Sugar Management #30 Ref 0 TAB Continued Medications: Albuterol 8.5 GM Inh (Proair Hfa 8.5 GM Inh) 90 Mcg/Act Aer 2 PUFF INH Q4-6H 108 mcg/actuation PRN SHORTNESS OF BREATH #1 Ref 0 INHALER Bupropion ER 12 HR (Smoking Deterrent) (Bupropion Sr 12 HR) 150 Mg Tab 150 MG PO BID Take 1 tablet daily x 3 days then twice daily thereafter. TAB Canagliflozin (Invokana) 100 Mg Tab 100 MG PO DAILY Take before 1st meal of day. Blood Sugar Management #30 Ref 0 TAB Cholecalciferol (Vitamin D-1000) 1,000 Unit Tab 1000 UNITS PO DAILY Nutritional Supplement #1 Ref 0 BOTTLE Ferrous Sulfate (Ferrous Sulfate) 325 Mg (65 Mg Iron) Tablet 325 MG PO DAILY Nutritional Supplement #30 Ref 0 TAB Gabapentin (Gabapentin) 400 Mg Cap 400 CAP PO HS #30 Ref 0 CAP Hydrochlorothiazide (Hydrochlorothiazide) 25 Mg Tab 25 MG PO DAILY #30 Ref 0 TAB Magnesium Oxide (Magnesium Oxide) 400 Mg Tab 400 MG PO DAILY Nutritional Supplement Ref 0 TAB Metoclopramide (Metoclopramide) 10 Mg Tab 10 MG PO QID Ref 0 TAB Multiple Vitamins W/ Minerals (Warren Mag Zinc + D3) 1 Tab 1 TAB PO DAILY Nutritional Supplement Ref 0 TAB Ondansetron (Zofran) 8 Mg Tab 8 MG PO TID Nausea/Vomiting Ref 0 TAB Pantoprazole (Pantoprazole) 40 Mg Tab 40 MG PO DAILY Reflux #30 Ref 0 TAB Ranitidine (Ranitidine Maximum Strength) 150 Mg Tab 150 MG PO BID Ref 0 TAB Simvastatin (Simvastatin) 80 Mg Tab 80 MG PO DAILY Cholesterol Management #30 Ref 0 TAB Tamoxifen (Tamoxifen) 20 Mg Tab 20 MG PO DAILY Chemotherapy Management #60 Ref 0 TAB Discontinued Medications: Glimepiride (Glimepiride) 2 Mg Tab 2 MG PO BIDAC Blood Sugar Management #60 Ref 0 TAB Meloxicam (Mobic) 7.5 Mg Tab 7.5 MG PO DAILY Pain Ref 0 TAB Chely Valles MD Oct 10, 2016 11:18
[2016-10-10] MEDS: ONDANSETRON HCL 4 MG/2 ML VIAL IV PUSH PRN ×2 (15:26→21:24)
--- NOTE | 2016-10-10 15:58 | HHI.GIFU ---
Subjective Remarks Resting in bed. Mild nausea, controlled with Zofran. States she had a baked potato and hamburger reinier for lunch and tolerated this. No pain. No vomiting. Daughter voiced concern about discharge, is afraid that she will have nausea/ vomiting later tonight if she goes home. Explained that she tolerated diet and has zofran that is controlling her nausea. (PozoSoo Vestaniyah SOLIS) Objective Vitals I&O Vital Signs Date Time Temp Pulse Resp B/P Pulse Ox O2 Delivery O2 Flow Rate FiO2 10/10/16 12:00 98.9 75 17 132/62 95 10/10/16 11:54 95 21 10/10/16 08:40 77 10/10/16 08:00 98.9 74 17 160/67 95 10/10/16 04:00 98.7 73 20 128/61 92 10/10/16 00:00 98.8 75 20 132/60 94 10/09/16 20:00 99.0 81 20 155/63 94 10/09/16 20:00 89 10/09/16 16:00 98.0 76 14 158/72 96 I/O 10/09/16 10/09/16 10/09/16 10/10/16 10/10/16 10/10/16 07:00 15:00 23:00 07:00 15:00 23:00 Intake Total 960 ml Balance 960 ml Intake Oral 960 ml # Voids 1 1 1 1 Imaging Last Impressions Gastric Emptying Nuclear Medicine 10/08/16 0000 Signed Impressions: Service Date/Time: Sunday, October 09, 2016 09:02 - CONCLUSION: The gastric emptying kinetics are within normal limits. Hernando Castellon MD Chest X-Ray 10/04/16 0057 Signed Impressions: Service Date/Time: September 01:13 - CONCLUSION: No acute disease. Glenn Florence MD Knee X-Ray 10/04/16 0000 Signed Impressions: Service Date/Time: September 08:05 - CONCLUSION: Advanced osteoarthritis of the right knee with patella conrado no evidence of acute fracture or joint effusion. Niels Dallas MD Head CT 10/04/16 0000 Signed Impressions: Service Date/Time: September 02:43 - CONCLUSION: No acute disease. Glenn Florence MD Physical Exam HEENT: Normocephalic; atraumatic; no jaundice. CHEST: CTA CARDIAC: RRR ABDOMEN: Soft, nondistended, nontender; no hepatosplenomegaly; bowel sounds are present in all four quadrants. EXTREMITIES: No clubbing, cyanosis, or edema. SKIN: Normal; no rash; no jaundice. GIANT TIRE REPAIRER: No focal deficits; alert and oriented times three. (Soo Pozo) Assessment and Plan Plan ASSESSMENT - Nausea/vomiting. Previous EGD (03/2015)----> showed gastric polyps, hiatal hernia that needs repair, and slowed stomach emptying per patient. S/P EGD (10/08/16)---> brown's, large hiatal hernia. Pathology with intestinalized mucosa at 26, 28 cm consistent with Brown's esophagus. Negative for dysplasia or malignancy. GES (10/08/16)-----> The gastric emptying kinetics are within normal limits. Tolerating diet- had a potato and hamburger reinier for lunch. Mild nausea- controlled with zofran. No vomiting. No abdominal pain. PPI, Zofran prn - Brown's Esophagus. PPI - Acute encephalopathy, resolved. - Diabetes mellitus, HTN per attending PLAN - GILMA - PPI - Zofran prn - FU PRAVEEN 2 weeks - Supportive care - Further recommendations to follow based on results of above - Pt seen and examined by Dr. Mejia and myself and this note is written on his behalf (Soo Pozo) Physician Comments Patient seen and examined Agree with above Continue with current supportive care Monitor labs No clear etiology for her nausea and workup is negative Therefore we'll treat with nausea medication Not much to add otherwise from a GI perspective therefore we will sign off ( Girish Mejia MD) Soo Pozo Oct 10, 2016 15:58 Girish Mejia MD Oct 10, 2016 18:26
[2016-10-10] MEDS: GABAPENTIN 400 MG CAP PO SCH (21:23)
[2016-10-11] VITALS (8 sets, daily range): BP systolic 152–179; BP diastolic 70–74; PULSE 74–88; RESP 15–20; TEMP 98.2–99.2; O2SAT 92–95
[2016-10-11] MEDS: INSULIN ASPART SUPPLEMENTAL SCALE SQ SCH ×4 (05:50→21:00)
[2016-10-11] MEDS: HEPARIN SODIUM - SQ 10,000 UNITS/ML VIAL SQ SCH ×3 (05:52→20:33)
[2016-10-11] MEDS: buPROPion HCL 150 MG SUSTAINED RELEASE TAB PO SCH ×2 (09:00→20:32)
[2016-10-11] MEDS: ONDANSETRON HCL 4 MG/2 ML VIAL IV PUSH PRN ×2 (09:32→11:01)
[2016-10-11] MEDS: TAMOXIFEN CITRATE 10 MG TAB PO SCH (10:53)
[2016-10-11] MEDS: PRAVASTATIN SOD 80 MG TAB PO SCH (10:54)
[2016-10-11] MEDS: PANTOPRAZOLE SOD 40 MG DELAYED RELEASE TAB PO SCH (10:54)
[2016-10-11] MEDS: SODIUM CHLORIDE 0.9% FLUSH 10 ML FLUSH IV FLUSH SCH ×2 (10:54→20:31)
--- NOTE | 2016-10-11 11:37 | HHI.PR ---
Subjective Remarks in no distress. but says that she's still having some nausea and wasn't able to eat as much. d/w the daughter who was also concerned about persistent nausea. d/w the RN. Objective Vitals Vital Signs Date Time Temp Pulse Resp B/P Pulse Ox O2 Delivery O2 Flow Rate FiO2 10/11/16 08:00 98.5 79 15 160/70 92 10/11/16 04:00 98.5 85 20 152/70 95 10/11/16 00:00 99.2 74 20 162/72 92 10/10/16 20:00 77 10/10/16 20:00 98.7 76 20 142/65 95 10/10/16 18:19 95 21 10/10/16 16:00 99.0 79 17 172/72 95 10/10/16 12:00 98.9 75 17 132/62 95 10/10/16 11:54 95 21 I/O 10/10/16 10/10/16 10/10/16 10/11/16 10/11/16 10/11/16 07:00 15:00 23:00 07:00 15:00 23:00 Intake Total 600 ml Balance 600 ml Intake Oral 600 ml # Voids 1 2 2 Result Diagram: 10/09/16 1202 10/09/16 1202 Imaging Last Impressions Gastric Emptying Nuclear Medicine 10/08/16 0000 Signed Impressions: Service Date/Time: Sunday, October 09, 2016 09:02 - CONCLUSION: The gastric emptying kinetics are within normal limits. Hernando Castellon MD Chest X-Ray 10/04/16 0057 Signed Impressions: Service Date/Time: September 01:13 - CONCLUSION: No acute disease. Glenn Florence MD Knee X-Ray 10/04/16 0000 Signed Impressions: Service Date/Time: September 08:05 - CONCLUSION: Advanced osteoarthritis of the right knee with patella conrado no evidence of acute fracture or joint effusion. Niels Dallas MD Head CT 10/04/16 0000 Signed Impressions: Service Date/Time: September 02:43 - CONCLUSION: No acute disease. Glenn Florence MD Objective Remarks GENERAL: This is a well-nourished, well-developed patient, in no apparent distress. CARDIOVASCULAR: Regular rate and regular rhythm without murmurs, gallops, or rubs. RESPIRATORY: Clear to auscultation. Breath sounds equal bilaterally. No wheezes , rales, or rhonchi. GASTROINTESTINAL: Abdomen soft, non-tender, nondistended. Normal, active bowel sounds MUSCULOSKELETAL: Extremities without clubbing, cyanosis, or edema. NEURO: Alert & Oriented x4 to person, place, time, situation. Moves all ext x4 Procedures EGD Medications and IVs Current Medications Acetaminophen 650 mg 650 mg ONCE ONCE PO Last administered on 10/04/16 01:50 ; Start 10/04/16 at 01:00; Stop 10/04/16 at 01:01; Status DC Cefepime HCl 2000 mg/Sodium Chloride 100 ml @ 200 mls/hr ONCE STAT IV Last administered on 10/04/16 01:50; Start 10/04/16 at 00:57; Stop 10/04/16 at 01:26 ; Status DC Sodium Chloride (NS 1000 ml Inj) 1,000 ml @ 1,000 mls/hr Q1H ONCE IV Last administered on 10/04/16 01:50; Start 10/04/16 at 00:57; Stop 10/04/16 at 01:56 ; Status DC Sodium Chloride (NS Flush) 2 ml UNSCH PRN IV FLUSH FLUSH AFTER USING IV ACCESS ; Start 10/04/16 at 03:00 Sodium Chloride (NS Flush) 2 ml BID IV FLUSH Last administered on 10/11/16 10: 54; Start 10/04/16 at 09:00 Naloxone HCl 0.4 mg 0.4 mg UNSCH PRN IV SEE LABEL COMMENTS; Start 10/04/16 at 03:00 Cefepime HCl/ Sodium Chloride (Maxipime Inj/NS Inj) 100 ml @ 200 mls/hr Q12H IV Last administered on 10/06/16 03:29; Start 10/04/16 at 15:00; Stop at 10:22; Status DC Dextrose (D50w (Vial) Inj) 50 ml UNSCH PRN IV HYPOGLYCEMIA-SEE COMMENTS; Start 10/04/16 at 07:30 Glucagon (Glucagon Inj) 1 mg UNSCH PRN OTHER HYPOGLYCEMIA-SEE COMMENTS; Start 10/04/16 at 07:30 Insulin Aspart (NovoLOG SUPPLEMENTAL SCALE) 1 ACHS SLIDING SCALE SQ Last administered on 10/10/16 12:28; Start 10/04/16 at 11:00 Heparin Sodium (Porcine) (Heparin Inj) 5,000 units Q8HR SQ Last administered on 10/11/16 05:52; Start 10/04/16 at 14:00 Pantoprazole Sodium 40 mg 40 mg DAILY PO Last administered on 10/11/16 10:54; Start 10/04/16 at 09:00 Sodium Chloride (NS 1000 ml Inj) 1,000 ml @ 84 mls/hr [id number] IV Last administered on 10/04/16 09:03; Start 10/04/16 at 07:45; Stop 10/04/16 at 15:00 ; Status DC Acetaminophen (Tylenol) 650 mg Q4H PRN PO FEVER/PAIN Last administered on 15:44; Start 10/04/16 at 09:45 Albuterol Sulfate (Ventolin Hfa Inh) 2 puff Q6HR PRN INH SHORTNESS OF BREATH Last administered on 10/10/16 08:20; Start 10/05/16 at 10:00 Bupropion HCl (Wellbutrin Sr) 150 mg BID PO Last administered on 10/10/16 09: 39; Start 10/05/16 at 21:00 Gabapentin (Neurontin) 400 mg HS PO Last administered on 10/10/16 21:23; Start 10/05/16 at 21:00 Pantoprazole Sodium (Protonix) 40 mg DAILY PO ; Start 10/06/16 at 09:00; Stop at 09:00; Status DC Tamoxifen Citrate (Nolvadex) 20 mg DAILY PO Last administered on 10/11/16 10: 53; Start 10/05/16 at 10:00 Pravastatin Sodium (Pravachol) 80 mg DAILY PO CM Last administered on 10/11/16 10:54; Start 10/05/16 at 10:00 Potassium Chloride (KCl) 10 meq ONCE ONCE PO Last administered on 10/05/16 13 :46; Start 10/05/16 at 14:00; Stop 10/05/16 at 14:01; Status DC Ondansetron HCl (Zofran Inj) 4 mg ONCE ONCE IV PUSH Last administered on 22:50; Start 10/05/16 at 22:00; Stop 10/05/16 at 22:01; Status DC Promethazine HCl (Phenergan) 12.5 mg ONCE ONCE PO Last administered on 03:29; Start 10/06/16 at 03:30; Stop 10/06/16 at 03:31; Status DC Ondansetron HCl (Zofran Inj) 4 mg Q8HR PRN IV PUSH NAUSEA Last administered on 10/11/16 11:01; Start 10/06/16 at 12:00 Ondansetron HCl (Zofran Odt) 8 mg TID PRN PO NAUSEA OR VOMITING; Start at 01:30; Status Hold Ondansetron HCl (Zofran Inj) 4 mg STK-MED ONCE .ROUTE ; Start 10/08/16 at 08:58 ; Stop 10/08/16 at 08:59; Status DC Propofol (Diprivan 200 Mg/20 ml Inj) 150 mg STK-MED ONCE IV ; Start 10/08/16 at 09:29; Stop 10/08/16 at 09:57; Status DC Miscellaneous Information ALL NURSING DEPARTME... UNSCH PRN .XX SEE LABEL COMMENTS; Start 10/08/16 at 09:40; Stop 10/09/16 at 09:39; Status DC Metoclopramide HCl (Reglan Inj) 10 mg STK-MED ONCE .ROUTE Last administered on 10/09/16 09:33; Start 10/09/16 at 09:33; Stop 10/09/16 at 09:34; Status DC A/P Assessment and Plan A/P acute encephalopathy- likely due to sepsis; suspect UTI- resolved. Bilateral knee painacute on chronic- XR with severe arthritis- continue with pain control- PT consulted. nausea/emesis- GI consult appreciated- s/p EGD with Barrette's esophagus and hiatal hernia- gastric emptying study unremarkable. will increase the dose of Zofran and will add metoclopramide- advance the diet. UTIrecently treated- UC negative. Acute kidney injury- likely from dehydration;improved. diabetes mellitus; accu-check with SSI hypertension; BP controlled- DVT prophylaxis with subq Heparin Discharge Planning dc home later this evening or in am if nausea improves. see med list. f/u; pcp and GI. d/w the patient and her daughter. d/w the RN. Chely Valles MD Oct 11, 2016 11:37
--- NOTE | 2016-10-11 12:19 | HHI.GIFU ---
Subjective Remarks Resting in bed. Still having nausea, reflux- but no vomiting. States she ate her scrambled eggs and 1/4 georgian muffin for breakfast. Has not received lunch tray yet. No abdominal pain. (PozoSoo Vesta WILL) Objective Vitals I&O Vital Signs Date Time Temp Pulse Resp B/P Pulse Ox O2 Delivery O2 Flow Rate FiO2 10/11/16 08:00 98.5 79 15 160/70 92 10/11/16 04:00 98.5 85 20 152/70 95 10/11/16 00:00 99.2 74 20 162/72 92 10/10/16 20:00 77 10/10/16 20:00 98.7 76 20 142/65 95 10/10/16 18:19 95 21 10/10/16 16:00 99.0 79 17 172/72 95 I/O 10/10/16 10/10/16 10/10/16 10/11/16 10/11/16 10/11/16 07:00 15:00 23:00 07:00 15:00 23:00 Intake Total 600 ml Balance 600 ml Intake Oral 600 ml # Voids 1 2 2 Imaging Last Impressions Gastric Emptying Nuclear Medicine 10/08/16 0000 Signed Impressions: Service Date/Time: Sunday, October 09, 2016 09:02 - CONCLUSION: The gastric emptying kinetics are within normal limits. Hernando Castellon MD Chest X-Ray 10/04/16 0057 Signed Impressions: Service Date/Time: September 01:13 - CONCLUSION: No acute disease. Glenn Florence MD Knee X-Ray 10/04/16 Signed Impressions: Service Date/Time: September 08:05 - CONCLUSION: Advanced osteoarthritis of the right knee with patella conrado no evidence of acute fracture or joint effusion. Niels Dallas MD Head CT 10/04/16 0000 Signed Impressions: Service Date/Time: September 02:43 - CONCLUSION: No acute disease. Glenn Florence MD Physical Exam HEENT: Normocephalic; atraumatic; no jaundice. CHEST: CTA CARDIAC: RRR ABDOMEN: Soft, nondistended, nontender; no hepatosplenomegaly; bowel sounds are present in all four quadrants. EXTREMITIES: No clubbing, cyanosis, or edema. SKIN: Normal; no rash; no jaundice. MANAGER OPERATIONS AND PROCUREMENT: No focal deficits; alert and oriented times three. (Soo Pozo) Assessment and Plan Plan ASSESSMENT - Nausea/vomiting. Previous EGD (03/2015)----> showed gastric polyps, hiatal hernia that needs repair, and slowed stomach emptying per patient. S/P EGD (10/08/16)---> brown's, large hiatal hernia. Pathology with intestinalized mucosa at 26, 28 cm consistent with Brown's esophagus. Negative for dysplasia or malignancy. GES (10/08/16)-----> The gastric emptying kinetics are within normal limits. Still complaining of nausea. She is tolerating diet without vomiting. No pain. Reglan was added, PPI, Zofran prn. No clear etiology for her nausea and workup is negative, recommend continuing to treat with nausea medication - Brown's Esophagus. PPI - Acute encephalopathy, resolved. - Diabetes mellitus, HTN per attending PLAN - GILMA - PPI - Reglan - Zofran prn - Nothing to add from GI standpoint. S/P workup, no clear etiology for her nausea. - FU PRAVEEN 2 weeks - GI will sign off - If symptoms persist, consider neurology workup - Pt seen and examined by Dr. Mejia and myself and this note is written on his behalf (Soo Pozo) Physician Comments Patient seen and examined Agree with above Continue with current supportive care Monitor labs No obvious central or peripheral causes for her nausea at this point Continue with symptomatic therapy Consider neurology evaluation for further information Not much to add from a GI standpoint we will sign off (Girish Mejia MD ) Soo Pozo Oct 11, 2016 12:19 Girish Mejia MD Oct 11, 2016 19:49
[2016-10-11] MEDS: METOCLOPRAMIDE HCL 10 MG TAB PO SCH ×3 (13:05→20:31)
[2016-10-11] MEDS: GABAPENTIN 400 MG CAP PO SCH (20:31)
[2016-10-12] VITALS: BP 141/62; PULSE 74; RESP 18; TEMP 98.7; O2SAT 94
[2016-10-12 04:00] VITALS: BP 145/67; PULSE 73; RESP 18; TEMP 98.8; O2SAT 97
[2016-10-12] MEDS: METOCLOPRAMIDE HCL 10 MG TAB PO SCH ×2 (05:54→10:00)
[2016-10-12] MEDS: HEPARIN SODIUM - SQ 10,000 UNITS/ML VIAL SQ SCH (05:54)
[2016-10-12] MEDS: INSULIN ASPART SUPPLEMENTAL SCALE SQ SCH (05:57)
[2016-10-12 08:00] VITALS: BP 152/83; PULSE 80; RESP 17; TEMP 98.5; O2SAT 94
[2016-10-12] MEDS: buPROPion HCL 150 MG SUSTAINED RELEASE TAB PO SCH (09:00)
[2016-10-12] MEDS: PRAVASTATIN SOD 80 MG TAB PO SCH (09:59)
[2016-10-12] MEDS: TAMOXIFEN CITRATE 10 MG TAB PO SCH (09:59)
[2016-10-12] MEDS: PANTOPRAZOLE SOD 40 MG DELAYED RELEASE TAB PO SCH (09:59)
[2016-10-12] MEDS: SODIUM CHLORIDE 0.9% FLUSH 10 ML FLUSH IV FLUSH SCH (10:00)
--- NOTE | 2016-10-12 10:12 | HHI.PR ---
Subjective Remarks nausea has much improved. had her breakfast with no issues. no new complaints. d/w the RN and no acute issues over night. Objective Vitals Vital Signs Date Time Temp Pulse Resp B/P Pulse Ox O2 Delivery O2 Flow Rate FiO2 10/12/16 08:00 98.5 80 17 152/83 94 10/12/16 04:00 98.8 73 18 145/67 97 10/12/16 00:00 98.7 74 18 141/62 94 10/11/16 19:41 99.1 88 18 179/74 95 10/11/16 16:00 98.6 76 15 162/74 94 10/11/16 14:06 93 21 10/11/16 12:00 98.2 74 15 164/73 94 I/O 10/11/16 10/11/16 10/11/16 10/12/16 10/12/16 10/12/16 07:00 15:00 23:00 07:00 15:00 23:00 Intake Total 600 ml Balance 600 ml Intake Oral 600 ml # Voids 2 3 3 # Bowel Movements 1 Result Diagram: 10/09/16 1202 10/09/16 1202 Imaging Last Impressions Gastric Emptying Nuclear Medicine 10/08/16 0000 Signed Impressions: Service Date/Time: Sunday, October 09, 2016 09:02 - CONCLUSION: The gastric emptying kinetics are within normal limits. Hernando Castellon MD Chest X-Ray 10/04/16 0057 Signed Impressions: Service Date/Time: September 01:13 - CONCLUSION: No acute disease. Glenn Florence MD Knee X-Ray 10/04/16 0000 Signed Impressions: Service Date/Time: September 08:05 - CONCLUSION: Advanced osteoarthritis of the right knee with patella conrado no evidence of acute fracture or joint effusion. Niels Dallas MD Head CT 10/04/16 0000 Signed Impressions: Service Date/Time: September 02:43 - CONCLUSION: No acute disease. Glenn Florence MD Objective Remarks GENERAL: This is a well-nourished, well-developed patient, in no apparent distress. CARDIOVASCULAR: Regular rate and regular rhythm without murmurs, gallops, or rubs. RESPIRATORY: Clear to auscultation. Breath sounds equal bilaterally. No wheezes , rales, or rhonchi. GASTROINTESTINAL: Abdomen soft, non-tender, nondistended. Normal, active bowel sounds MUSCULOSKELETAL: Extremities without clubbing, cyanosis, or edema. NEURO: Alert & Oriented x4 to person, place, time, situation. Moves all ext x4 Procedures EGD Medications and IVs Current Medications Acetaminophen 650 mg 650 mg ONCE ONCE PO Last administered on 10/04/16 01:50 ; Start 10/04/16 at 01:00; Stop 10/04/16 at 01:01; Status DC Cefepime HCl 2000 mg/Sodium Chloride 100 ml @ 200 mls/hr ONCE STAT IV Last administered on 10/04/16 01:50; Start 10/04/16 at 00:57; Stop 10/04/16 at 01:26 ; Status DC Sodium Chloride (NS 1000 ml Inj) 1,000 ml @ 1,000 mls/hr Q1H ONCE IV Last administered on 10/04/16 01:50; Start 10/04/16 at 00:57; Stop 10/04/16 at 01:56 ; Status DC Sodium Chloride (NS Flush) 2 ml UNSCH PRN IV FLUSH FLUSH AFTER USING IV ACCESS ; Start 10/04/16 at 03:00 Sodium Chloride (NS Flush) 2 ml BID IV FLUSH Last administered on 10/12/16 10: 00; Start 10/04/16 at 09:00 Naloxone HCl 0.4 mg 0.4 mg UNSCH PRN IV SEE LABEL COMMENTS; Start 10/04/16 at 03:00 Cefepime HCl/ Sodium Chloride (Maxipime Inj/NS Inj) 100 ml @ 200 mls/hr Q12H IV Last administered on 10/06/16 03:29; Start 10/04/16 at 15:00; Stop at 10:22; Status DC Dextrose (D50w (Vial) Inj) 50 ml UNSCH PRN IV HYPOGLYCEMIA-SEE COMMENTS; Start 10/04/16 at 07:30 Glucagon (Glucagon Inj) 1 mg UNSCH PRN OTHER HYPOGLYCEMIA-SEE COMMENTS; Start 10/04/16 at 07:30 Insulin Aspart (NovoLOG SUPPLEMENTAL SCALE) 1 ACHS SLIDING SCALE SQ Last administered on 10/11/16 16:00; Start 10/04/16 at 11:00 Heparin Sodium (Porcine) (Heparin Inj) 5,000 units Q8HR SQ Last administered on 10/12/16 05:54; Start 10/04/16 at 14:00 Pantoprazole Sodium 40 mg 40 mg DAILY PO Last administered on 10/12/16 09:59; Start 10/04/16 at 09:00 Sodium Chloride (NS 1000 ml Inj) 1,000 ml @ 84 mls/hr [id number] IV Last administered on 10/04/16 09:03; Start 10/04/16 at 07:45; Stop 10/04/16 at 15:00 ; Status DC Acetaminophen (Tylenol) 650 mg Q4H PRN PO FEVER/PAIN Last administered on 15:44; Start 10/04/16 at 09:45 Albuterol Sulfate (Ventolin Hfa Inh) 2 puff Q6HR PRN INH SHORTNESS OF BREATH Last administered on 10/10/16 08:20; Start 10/05/16 at 10:00 Bupropion HCl (Wellbutrin Sr) 150 mg BID PO Last administered on 10/10/16 09: 39; Start 10/05/16 at 21:00 Gabapentin (Neurontin) 400 mg HS PO Last administered on 10/11/16 20:31; Start 10/05/16 at 21:00 Pantoprazole Sodium (Protonix) 40 mg DAILY PO ; Start 10/06/16 at 09:00; Stop at 09:00; Status DC Tamoxifen Citrate (Nolvadex) 20 mg DAILY PO Last administered on 10/12/16 09: 59; Start 10/05/16 at 10:00 Pravastatin Sodium (Pravachol) 80 mg DAILY PO CM Last administered on 10/12/16 09:59; Start 10/05/16 at 10:00 Potassium Chloride (KCl) 10 meq ONCE ONCE PO Last administered on 10/05/16 13 :46; Start 10/05/16 at 14:00; Stop 10/05/16 at 14:01; Status DC Ondansetron HCl (Zofran Inj) 4 mg ONCE ONCE IV PUSH Last administered on 22:50; Start 10/05/16 at 22:00; Stop 10/05/16 at 22:01; Status DC Promethazine HCl (Phenergan) 12.5 mg ONCE ONCE PO Last administered on 03:29; Start 10/06/16 at 03:30; Stop 10/06/16 at 03:31; Status DC Ondansetron HCl (Zofran Inj) 4 mg Q8HR PRN IV PUSH NAUSEA Last administered on 10/11/16 11:01; Start 10/06/16 at 12:00; Stop 10/11/16 at 11:24; Status DC Ondansetron HCl (Zofran Odt) 8 mg TID PRN PO NAUSEA OR VOMITING Last administered on 10/11/16 21:50; Start 10/08/16 at 01:30 Ondansetron HCl (Zofran Inj) 4 mg STK-MED ONCE .ROUTE ; Start 10/08/16 at 08:58 ; Stop 10/08/16 at 08:59; Status DC Propofol (Diprivan 200 Mg/20 ml Inj) 150 mg STK-MED ONCE IV ; Start 10/08/16 at 09:29; Stop 10/08/16 at 09:57; Status DC Miscellaneous Information ALL NURSING DEPARTME... UNSCH PRN .XX SEE LABEL COMMENTS; Start 10/08/16 at 09:40; Stop 10/09/16 at 09:39; Status DC Metoclopramide HCl (Reglan Inj) 10 mg STK-MED ONCE .ROUTE Last administered on 10/09/16 09:33; Start 10/09/16 at 09:33; Stop 10/09/16 at 09:34; Status DC Metoclopramide HCl (Reglan) 10 mg ACHS PO Last administered on 10/12/16 10:00 ; Start 10/11/16 at 12:00 A/P Assessment and Plan A/P acute encephalopathy- likely due to sepsis; suspect UTI- resolved. Bilateral knee painacute on chronic- XR with severe arthritis- continue with pain control- PT consulted. nausea/emesis- resolved-GI consult appreciated- s/p EGD with Barrette's esophagus and hiatal hernia- gastric emptying study unremarkable. UTIrecently treated- UC negative. Acute kidney injury- likely from dehydration;improved. diabetes mellitus; accu-check with SSI hypertension; BP controlled- DVT prophylaxis with subq Heparin Discharge Planning dc home today. see med list. f/u; pcp and GI. d/w the patient and previously with her daughter. d/w the RN. Chely Valles MD Oct 12, 2016 10:12
[2016-10-12] MEDS ORDERED: WALKER WHEELS/F1 MIS (13:35)
== END 2016-10-12 11:50 | disposition home health service (06) | DRG 871 ==
LOC: NEPC 00:48 → NEDA 03:03 → N05B 12:08
PROVIDERS: ADMIT Internal Medicine; ATTEND Internal Medicine
PROC: 0DB38ZX Excision of Lower Esophagus, Via Natural or Artificial Opening Endoscopic, Diagnostic (ICD-10-PCS; principal; 2016-10-08 09:22)
DX: A41.9 Sepsis, unspecified organism (principal); G93.40 Encephalopathy, unspecified; N17.9 Acute kidney failure, unspecified; N39.0 Urinary tract infection, site not specified; J44.9 Chronic obstructive pulmonary disease, unspecified; E86.0 Dehydration; K22.70 Barrett's esophagus without dysplasia; K44.9 Diaphragmatic hernia without obstruction or gangrene; R11.2 Nausea with vomiting, unspecified; I10 Essential (primary) hypertension; M17.0 Bilateral primary osteoarthritis of knee; E11.9 Type 2 diabetes mellitus without complications; Z79.84 Long term (current) use of oral hypoglycemic drugs; Z85.3 Personal history of malignant neoplasm of breast; Z92.21 Personal history of antineoplastic chemotherapy; Z87.891 Personal history of nicotine dependence
CPT/HCPCS: 70450; 71010; 73564; 76937; 78264; 80048; 80053; 81001; 82948; 83605; 84484; 85025; 85027; 85610; 85730; 87040; 87086; 88305; 93005; 96365; A9541; J0692; J1644; J1815; J2405; J2765; J7030; P9612; Q0169